=== PATIENT | male | born 1970 | race Caucasian/White ===

== ENCOUNTER → 2017-09-29 16:07 | Outpatient (CLI) | payer BC, SELFPAY | PROVIDERS: PCP Internal Medicine; Visit Provider Internal Medicine | DX: G47.33 Obstructive sleep apnea (adult) (pediatric) (principal); I10 Essential (primary) hypertension; E11.9 Type 2 diabetes mellitus without complications | CPT/HCPCS: G0399 ==

== ENCOUNTER → 2018-09-18 17:06 | Outpatient (CLI) | payer OTHER, SELFPAY ==
[2018-09-18 17:26] LABS: Basophils % 0.5 % (0.1-2.0); Eosinophils # 0.2 K/mm3 (0.0-0.4); Hematocrit 46.5 % (42.0-52.0); Hemoglobin 15.7 g/dL (14.1-18.0); Lymphocytes # 2.4 K/mm3 (0.7-4.5); Lymphocytes % 31.5 % (10-50); Mean Corpuscular HGB Conc 33.7 g/dL (31.8-35.4); Mean Corpuscular Hemoglobin 29.2 pg (27.0-31.2); Mean Corpuscular Volume 86.6 fl (80-94); Mean Platelet Volume 6.8 fl (7.4-10.4); Monocytes # 0.4 K/mm3 (0.1-1.0); Monocytes % 4.7 % (1.7-9.3); Neutrophils # 4.7 K/mm3 (1.8-7.8); Neutrophils % 61.3 % (37.0-80.0); Platelet Count 195 K/mm3 (142-424); Red Blood Count 5.37 M/mm3 (4.60-6.20); Red Cell Distribution Width 13.8 % (11.5-17.5); White Blood Count 7.6 K/mm3 (4.8-10.8)
[2018-09-18 18:59] LABS: Blood Urea Nitrogen 16 mg/dL (7-18); Creatinine,Serum 0.99 mg/dL (0.70-1.30); Estimated Glomerular Filt Rate 81 ml/min (>60); GFR (African American) 98 ML/MIN (>60)
--- NOTE | 2018-09-18 19:17 | CT_ITS ---
CT abdomen pelvis wo/w con CLINICAL INDICATION: Right lower quadrant pain, right flank pain ITS.REASON: RLQ PAIN ORDERING PHYSICIAN: Domnigo Cardenas PATIENT AGE: 47 years COMPARISON: None TECHNIQUE: Axial images obtained without and with contrast with sagittal and coronal reformats. All CT scans at the facility use one or more dose reduction, viz: automated exposure control, ma/kV adjustment per patient size (including targeted exams where dose is matched to indication, i.e. head), or iterative reconstruction technique. PROCEDURE: Oral Contrast: Gastroview IV Contrast: 75 mL's of Isovue 370. FINDINGS: There are mild atelectatic changes in the right lung base. The liver, spleen, adrenal glands, pancreas, and kidneys have an unremarkable appearance. No renal or ureteral calculi. No hydronephrosis. No evidence of appendicitis, intestinal obstruction, or free air. There is mild amount of retained colonic feces. There is thickening of the distal aspect of the sigmoid colon at the rectosigmoid region measuring approximately 9 cm in length. There is mild stranding of the pericolic fat at this region. There are a few diverticula noted within the sigmoid colon. No abscess. No free air. The prostate gland is enlarged with some dystrophic calcification. No acute bony anomalies. IMPRESSION: Acute sigmoid colitis which may be diverticular in origin. Follow-up is recommended to confirm resolution. Neoplasm is not excluded. No evidence of abscess or perforation. No evidence of appendicitis or obstructing ureteral calculus
== END ==
PROVIDERS: PCP Internal Medicine; Visit Provider Internal Medicine
DX: R10.11 Right upper quadrant pain (principal)
CPT/HCPCS: 36415; 74178; 82565; 84520; 85025; Q9967

== ENCOUNTER → 2019-01-17 13:14 | Outpatient (CLI) | payer OTHER, SELFPAY | PROVIDERS: PCP Internal Medicine; Visit Provider Internal Medicine | DX: G47.33 Obstructive sleep apnea (adult) (pediatric) (principal) | CPT/HCPCS: 95806 ==

== ENCOUNTER → 2019-07-11 16:53 | Outpatient (CLI) | payer OTHER, SELFPAY ==
[2019-07-11 17:43] LABS: Alanine Aminotransferase 37 U/L (12-78); Albumin/Globulin Ratio 0.9 (1.1-1.8); Alkaline Phosphatase 49 U/L (46-116); Anion Gap 11.9 mEq/L (5-15); Aspartate Amino Transferase 20 U/L (15-37); Bilirubin,Total 0.5 mg/dL (0.2-1.0); Blood Urea Nitrogen 12 mg/dL (7-18); Carbon Dioxide 24 mmol/L (21.0-32.0); Chloride 99 mmol/L (98-107); Creatinine,Serum 0.75 mg/dL (0.70-1.30); Estimated Glomerular Filt Rate 111 ml/min (>60); GFR (African American) 134 ML/MIN (>60); Globulin 3.5 gm/dl (1.3-3.2); Glucose 133 mg/dL (74-106); Magnesium 2.1 mg/dL (1.4-2.2); Phosphorous 2.9 mg/dL (2.4-4.9); Potassium 3.9 mmoL/L (3.5-5.1); Sodium 131 mmol/L (136-145); Total Protein,Serum 6.5 gm/dL (6.4-8.2); Triglycerides 120 mg/dL (30-200)
[2019-07-11 18:48] LABS: Basophils % 0.1 % (0.1-2.0); Eosinophils % 0.3 % (0.1-12.0); Hematocrit 35.6 % (42.0-52.0); Hemoglobin 11.8 g/dL (14.1-18.0); Lymphocytes # 1.1 K/mm3 (0.7-4.5); Lymphocytes % 13.5 % (10-50); Mean Corpuscular HGB Conc 33.1 g/dL (31.8-35.4); Mean Corpuscular Hemoglobin 31.1 pg (27.0-31.2); Mean Corpuscular Volume 94.1 fl (80-94); Mean Platelet Volume 9.1 fl (7.4-10.4); Monocytes # 0.5 K/mm3 (0.1-1.0); Monocytes % 5.6 % (1.7-9.3); Neutrophils # 6.4 K/mm3 (1.8-7.8); Neutrophils % 80.5 % (37.0-80.0); Platelet Count 133 K/mm3 (142-424); Red Blood Count 3.78 M/mm3 (4.60-6.20); Red Cell Distribution Width 14.5 % (11.5-17.5)
[2019-07-13 05:15] LABS: Prealbumin 18 mg/dL (12-34)
== END ==
PROVIDERS: Visit Provider Nurse Practitioner Acute Care
DX: D64.9 Anemia, unspecified (principal)
CPT/HCPCS: 80053; 83735; 84100; 84134; 84478; 85025

== ENCOUNTER → 2020-05-27 13:46 | Outpatient (POV) | payer OTHER, SELFPAY | DX: Z00.00 Encounter for general adult medical examination without abnormal findings (principal) ==

== ENCOUNTER 2020-07-30 08:00 | Outpatient (RCR) | payer OTHER, SELFPAY | END 2020-07-30 08:05 | disposition home or self-care (01) | LOC: PT 08:00 | PROVIDERS: PCP Internal Medicine; Visit Provider Physician Assistant Medical | DX: T81.30XA Disruption of wound, unspecified, initial encounter (principal) | CPT/HCPCS: 97110; 97163; 97164 ==

== ENCOUNTER 2020-09-08 14:48 | Emergency (ER) | payer OTHER, SELFPAY ==
[2020-09-08 14:49] VITALS: BP 146/86; PULSE 106; RESP 16; TEMP 39.4; O2SAT 96; BMI 30.4
--- NOTE | 2020-09-08 15:10 | HMH.EDUTC ---
[facility] [place] Clinical Impression: Viral syndrome, Exposure to COVID-19 virus Disposition: Home, Self-Care Condition on Discharge: Good Instructions: DI for COVID-19 (Suspected or Confirmed ), Preventing the Spread of Coronavirus Discharge Instructions Additional Instructions: Drink plenty of fluids. Take tylenol for pain or fever. Return if you begin to have difficulty breathing. Follow up with your regular doctor. GO TO THE ER FOR ANY WORSENING SYMPTOMS Take the zofran for nausea. Go to the er for worsening GI symptoms or difficulty breathing. Prescriptions: Ondansetron [Zofran 4mg ODT] 4 mg PO Q8HP PRN #20 tab.rapdis PRN Reason: Nausea Transmission Status: Received by conXt #[id number] Referrals: Domingo Cardenas [Primary Care Provider] - Time of Disposition: 15:42 Medical Decision Making - Medical Records Medical records reviewed: No: I reviewed the patient's medical records. - See Inquiry Pt receiving controlled substance: No Vital Signs: 09/08/20 14:49 09/08/20 15:52 Temperature 102.9 F H 101.0 F H Temperature Source Oral Oral Pulse Rate 106 H Pulse Rate [Right] 106 H Respiratory Rate 16 15 Blood Pressure 146/86 H Blood Pressure [Right Arm] 146/86 H Blood Pressure Mean [Right Arm] 106 02 Sat by Pulse Oximetry 96 Orders (Tests/Meds): ED MEDICATIONS Discontinued Medications Generic Name Dose Route Start Last Admin Trade Name Freq PRN Reason Stop Dose Admin Acetaminophen 650 mg 09/08/20 15:20 09/08/20 15:22 Acetaminophen 325mg Tab PO 09/08/20 15:21 650 mg ONCE ONE Administration Ibuprofen 800 mg 09/08/20 15:20 09/08/20 15:23 Ibuprofen 400 Mg Tablet PO 09/08/20 15:21 800 mg ONCE ONE Administration [facility] [place] - General Stated complaint: cough scratchy throat fever Time Seen by Provider: 09/08/20 15:10 - History of Present Illness Provider Complaint: He states that since very early this morning, he has had chilling, fever, body aches and nausea. - Related Data Previous Rx's Medication Instructions Recorded Ondansetron [Zofran 4mg ODT] 4 mg PO Q8HP PRN #20 tab.rapdis 01/12/21 Allergies Allergy/AdvReac Type Severity Reaction Status Date / Time No Known Allergies Allergy Verified 09/08/20 15:20 [facility] History - Hepatitis A Screen Attestation statement:: This patient has been screened for Hepatitis A risk factors. I have reviewed the patient's past medical history: Yes Medical History: Reports:: Cancer (colorectal), Diabetes Mellitus Type 2 Denies:: Diabetes Mellitus Type 1, MRSA - Social History Alcohol Intake: never Occupational Status: unemployed ROS Obtained: Yes All systems reviewed & no additional complaints - Constitutional Constitutional: Reports system reviewed and no additional complaints, except as docu - Eyes Eyes: Reports system reviewed and no additional complaints, except as docu - ENT Ears, Nose, Mouth, and Throat: Reports system reviewed and no additional complaints, except as docu - Cardiovascular Cardiovascular: Reports system reviewed and no additional complaints, except as docu - Respiratory Respiratory: Reports system reviewed and no additional complaints, except as docu - Gastrointestinal Gastrointestingal: Reports: system reviewed and no additional complaints, except as docu Physical Exam - General General appearance: alert, in no apparent distress - Head Head exam: atraumatic, normocephalic, normal inspection - Eye Eye exam: Present: normal appearance, PERRL, EOMI - ENT ENT exam: Present: normal exam, normal oropharynx, mucous membranes moist, TM's normal bilaterally, normal external ear exam - Neck Neck exam: Present: normal inspection, full ROM, trachea midline. Absent: meningismus, lymphadenopathy - Chest Chest inspection: Present: normal inspection, symmetric chest wall rise. Absent: tenderness - Respiratory Respiratory
[2020-09-08 15:52] VITALS: BP 146/86; PULSE 106; RESP 15; TEMP 38.3
[2020-09-08 21:17] LABS: UTC Influenza A Antigen Negative (Negative)
[2020-09-08 21:18] LABS: UTC Influenza B Antigen Negative (Negative)
[2020-09-10 10:50] LABS: Covid-19 Nasal PCR Sendout P&C POSITIVE
--- NOTE | 2020-09-10 13:36 | PC.NURSE ---
PATIENT NOTIFIED OF POSITIVE COVID TEST AT THIS TIME
== END 2020-09-08 15:58 | disposition home or self-care (01) ==
PROVIDERS: Emergency Provider Nurse Practitioner Family; PCP Internal Medicine
DX: U07.1 COVID-19 (principal); B34.9 Viral infection, unspecified; E11.9 Type 2 diabetes mellitus without complications; Z85.038 Personal history of other malignant neoplasm of large intestine
CPT/HCPCS: 87804; 99202; G0463; U0004

== ENCOUNTER 2020-10-08 12:42 | Emergency (ER) | payer OTHER, SELFPAY ==
[2020-10-08 12:53] VITALS: BP 148/86; PULSE 75; RESP 17; TEMP 36.8; O2SAT 99; BMI 30.4
--- NOTE | 2020-10-08 12:56 | HMH.EDUTC ---
[facility] [place] Disposition Clinical Impression: Encounter for laboratory testing for COVID-19 virus Disposition: Home, Self-Care Condition on Discharge: Good Instructions: DI for COVID-19 (Suspected or Confirmed ), Coronavirus Disease 2019, Preventing the Spread of Coronavirus Discharge Instructions Additional Instructions: *Monitor Temp, Over the counter Motrin or Tylenol as directed/as needed Tylenol every 4 hours and Motrin every 6 hours (as long as your family doctor has told you that you can take it) for fever or pain. and straight to ER if unable to lower temp less than 101.0 after medication given Follow up IMMEDIATELY for new or worsening symptoms or no Noticeable improvement over the next 48-72 hours. 911 for difficulty breathing or swallowing You were tested for today for COVID19 your test result should be back in the next 24-48 hours, you may call to the [facility] to see if your test results are back in the next 48 hours [phone] [facility] hours are 9am-9pm You was given a handout with instructions for Self Quarantine and Self isolation for while you wait on test results and what to do if they are positive If you are positive the Health Dept will be contacting you also Referrals: Domingo Cardenas [Primary Care Provider] - As needed Forms: Work/School Release Time of Disposition: 13:00 Medical Decision Making - See Inquiry Pt receiving controlled substance: No See was queried for this patient: No Vital Signs: 10/08/20 12:53 10/08/20 12:59 Temperature 98.2 F 98.1 F Temperature Source Oral Oral Pulse Rate 78 Pulse Rate [Right] 75 Respiratory Rate 17 16 Blood Pressure 142/80 H Blood Pressure [Right Arm] 148/86 H Blood Pressure Mean [Right Arm] 106 Blood Pressure Source [Right Arm] Automatic Cuff Blood Pressure Position Sitting Blood Pressure Position [Right Arm] Sitting 02 Sat by Pulse Oximetry 99 Oxygen Delivery Method Room Air Orders (Tests/Meds): ORDERS Category Date Time Status Covid-19 Nasal PCR ([facility]) Routine Lab 10/08/20 12:46 Ordered [facility] [place] HPI - General Stated complaint: covid test Time Seen by Provider: 10/08/20 12:57 Mode of Arrival: Ambulatory Source of Information: Patient Limitations: No Limitations Description of Symptoms (Recalled from Triage Doc. by RN): follow up covid test after positive test on Sep 08. HEENT Symptoms (Recalled from RN notes): No Resp Symptoms (Recalled from RN notes): No Skin Symptoms (Recalled from RN notes): No MS Symptoms (Recalled from RN notes): No Functional Status (Recalled from RN notes): na - History of Present Illness Provider Complaint: Patient states that he was positive for COVID on Sep 08 States that he wants to get tested again to see if he is negative so he can return to work Denies any symptoms - Related Data Previous Rx's Medication Instructions Recorded Ondansetron [Zofran 4mg ODT] 4 mg PO Q8HP PRN #20 tab.rapdis 09/08/20 Allergies Allergy/AdvReac Type Severity Reaction Status Date / Time atropine [From Lomotil] Allergy Verified 10/08/20 12:50 diphenoxylate [From Lomotil] Allergy Verified 10/08/20 12:50 - Worker's Comp Is this a Worker's Comp case?: No [facility] History - Hepatitis A Screen Drug use history?: No High risk sexual behaviors?: No History of sexually transmitted infection?: No Currently employed?: No Childcare worker?: No Do you have indoor plumbing?: Yes Do you have electricity?: Yes Attestation statement:: This patient has been screened for Hepatitis A risk factors. I have reviewed the patient's past medical history: Yes Medical History: Reports:: Cancer (colorectal), Diabetes Mellitus Type 2 Denies:: Diabetes Mellitus Type 1, MRSA - Social History Smoking Status: Unknown if ever smoked Alcohol Intake: never Occupational Status: employed ROS Obtained: Yes All systems reviewed & no additional complaints, Yes Systems reviewed as appropriate & no additional complaints - Constitut
[2020-10-08 12:59] VITALS: BP 142/80; PULSE 78; RESP 16; TEMP 36.7
--- NOTE | 2020-10-08 15:27 | PC.NURSE ---
Pt notified positive covid test
== END 2020-10-08 13:05 | disposition home or self-care (01) ==
PROVIDERS: Emergency Provider Nurse Practitioner; PCP Internal Medicine
DX: U07.1 COVID-19 (principal); E11.9 Type 2 diabetes mellitus without complications
CPT/HCPCS: 99202; G0463; U0003

== ENCOUNTER → 2021-01-22 15:56 | Outpatient (CLI) | payer OTHER, SELFPAY ==
--- NOTE | 2021-01-22 16:02 | CT_ITS ---
PROCEDURE INFORMATION: Exam: CT Head Without Contrast Exam date and time: 01/22/2021 4:02 PM Age: 50 years old Clinical indication: Pain; Patient HX: Headache, neck ache TECHNIQUE: Imaging protocol: Computed tomography of the head without contrast. Radiation optimization: All CT scans at this facility use at least one of these dose optimization techniques: automated exposure control; mA and/or kV adjustment per patient size (includes targeted exams where dose is matched to clinical indication); or iterative reconstruction. COMPARISON: No relevant prior studies available. FINDINGS: Brain: Normal. No hemorrhage. Unremarkable white matter. No mass effect. Cerebral ventricles: No ventriculomegaly. Paranasal sinuses: Visualized sinuses are unremarkable. No fluid levels. Mastoid air cells: Visualized mastoid air cells are well aerated. Bones/joints: No acute fracture. Soft tissues: No acute changes IMPRESSION: No acute intracranial abnormality.
== END ==
PROVIDERS: PCP Internal Medicine; Visit Provider Internal Medicine
DX: R51.9 Headache, unspecified (principal)
CPT/HCPCS: 70450

== ENCOUNTER → 2021-06-21 18:26 | Outpatient (CLI) | payer OTHER, SELFPAY ==
[2021-06-21 18:57] LABS: Basophils % 0.2 % (0.1-2.0); Eosinophils # 0.1 K/mm3 (0.0-0.4); Eosinophils % 2.4 % (0.1-12.0); Hematocrit 39.2 % (42.0-52.0); Hemoglobin 12.9 g/dL (14.1-18.0); Lymphocytes # 1.2 K/mm3 (0.7-4.5); Lymphocytes % 20.7 % (10-50); Mean Corpuscular HGB Conc 32.9 g/dL (31.8-35.4); Mean Corpuscular Hemoglobin 30.1 pg (27.0-31.2); Mean Corpuscular Volume 91.6 fl (80-94); Mean Platelet Volume 9.2 fl (7.4-10.4); Monocytes # 0.3 K/mm3 (0.1-1.0); Monocytes % 5.3 % (1.7-9.3); Neutrophils % 71.4 % (37.0-80.0); Platelet Count 152 K/mm3 (142-424); Red Blood Count 4.28 M/mm3 (4.60-6.20); Red Cell Distribution Width 14.6 % (11.5-17.5); White Blood Count 5.7 K/mm3 (4.8-10.8)
[2021-06-21 19:55] LABS: Alanine Aminotransferase 13 U/L (12-78); Albumin Level 4.2 g/dl (3.5-5.0); Albumin/Globulin Ratio 1.6 (1.1-1.8); Alkaline Phosphatase 60 U/L (38-126); Anion Gap 12.1 mEq/L (5-15); Aspartate Amino Transferase 21 U/L (17-59); Bilirubin,Total 0.5 mg/dl (0.2-1.3); Blood Urea Nitrogen 14 mg/dl (9-20); Carbon Dioxide 27 mmol/L (22.0-30.0); Chloride 104 mmol/L (98-107); Chol/HDL Ratio 5.3 (1-3.5); Cholesterol 142 mg/dl (140-200); Estimated Glomerular Filt Rate 71 ml/min (>60); GFR (African American) 86 ML/MIN (>60); Globulin 2.6 g/dL (1.3-3.2); Glucose 73 mg/dl (74-100); HDL Cholesterol 27 mg/dl (40-60); Potassium 4.1 mmoL/L (3.5-5.1); Sodium 139 mmol/L (136-145); Total Protein,Serum 6.8 g/dl (6.3-8.2); Triglycerides 146 mg/dl (30-150); VLDL Cholesterol 29 mg/dL (0-40)
[2021-06-21 20:06] LABS: Direct LDL Cholesterol 85.73 mg/dL (100-129)
[2021-06-21 20:25] LABS: Prostate Specific Ag Screen 1.3 ng/ml (0.0-4.0)
[2021-06-21 20:28] LABS: Hemoglobin A1C 7.3 % (4.0-6.0)
== END ==
PROVIDERS: Visit Provider Internal Medicine
DX: I10 Essential (primary) hypertension (principal); E11.9 Type 2 diabetes mellitus without complications; E78.5 Hyperlipidemia, unspecified; K76.0 Fatty (change of) liver, not elsewhere classified; C18.9 Malignant neoplasm of colon, unspecified; N40.1 Benign prostatic hyperplasia with lower urinary tract symptoms; Z12.5 Encounter for screening for malignant neoplasm of prostate; Z98.890 Other specified postprocedural states
CPT/HCPCS: 80053; 80061; 83036; 85025; G0103

== ENCOUNTER 2021-07-13 09:00 | Outpatient (RCR) | payer OTHER, SELFPAY | END 2021-07-13 09:05 | disposition home or self-care (01) | LOC: PT 09:00 | PROVIDERS: PCP Internal Medicine; Visit Provider Neurological Surgery | DX: M79.18 Myalgia, other site (principal) | CPT/HCPCS: 20561; 97010; 97014; 97110; 97140; 97163; G0283 ==

== ENCOUNTER 2021-08-31 11:02 | Outpatient (CLI) | payer OTHER, SELFPAY ==
[2021-08-31 11:08] VITALS: BMI 26.2
[2021-08-31 11:36] LABS: Basophils % 0.6 % (0.1-2.0); Eosinophils # 0.1 K/mm3 (0.0-0.4); Eosinophils % 1.1 % (0.1-12.0); Hematocrit 27.7 % (42.0-52.0); Hemoglobin 9.3 g/dL (14.1-18.0); Lymphocytes # 0.9 K/mm3 (0.7-4.5); Lymphocytes % 17.2 % (10-50); Mean Corpuscular HGB Conc 33.5 g/dL (31.8-35.4); Mean Corpuscular Hemoglobin 29.7 pg (27.0-31.2); Mean Corpuscular Volume 88.7 fl (80-94); Mean Platelet Volume 7.6 fl (7.4-10.4); Monocytes # 0.4 K/mm3 (0.1-1.0); Neutrophils % 74.2 % (37.0-80.0); Platelet Count 250 K/mm3 (142-424); Red Blood Count 3.12 M/mm3 (4.60-6.20); Red Cell Distribution Width 14.3 % (11.5-17.5); White Blood Count 5.5 K/mm3 (4.8-10.8)
[2021-08-31 11:37] LABS: Chloride 104 mmol/L (98-107)
[2021-08-31 11:38] LABS: Potassium 4.7 mmoL/L (3.5-5.1); Sodium 136 mmol/L (136-145)
[2021-08-31 11:40] LABS: Alanine Aminotransferase 23 U/L (12-78); Aspartate Amino Transferase 22 U/L (17-59); Blood Urea Nitrogen 46 mg/dl (9-20); Creatinine Clearance Estimated 20 mL/min (50-200); Estimated Glomerular Filt Rate 12 ml/min (>60); GFR (African American) 14 ML/MIN (>60)
[2021-08-31 11:41] LABS: Albumin Level 3.8 g/dl (3.5-5.0); Albumin/Globulin Ratio 1.2 (1.1-1.8); Alkaline Phosphatase 161 U/L (38-126); Anion Gap 15.7 mEq/L (5-15); Bilirubin,Total 0.3 mg/dl (0.2-1.3); Calcium 8.7 mg/dl (8.4-10.2); Carbon Dioxide 21 mmol/L (22.0-30.0); Globulin 3.2 g/dL (1.3-3.2); Glucose 120 mg/dl (74-100)
--- NOTE | 2021-08-31 11:41 | PC.NURSE ---
1143-pinky richardson mlt called rn at 1141 to report creatinine level 5.3. rn repeated and verified pt name, , and lab value.result called to and left message with sissy. no new orders at this time.
== END 2021-08-31 11:20 | disposition home or self-care (01) ==
LOC: INF 11:03
PROVIDERS: PCP Internal Medicine; Visit Provider Surgery
DX: Z45.2 Encounter for adjustment and management of vascular access device (principal); C18.9 Malignant neoplasm of colon, unspecified; N19 Unspecified kidney failure; D64.9 Anemia, unspecified
CPT/HCPCS: 80053; 85025; J1642

== ENCOUNTER → 2021-09-07 11:01 | Outpatient (CLI) | payer OTHER, SELFPAY | PROVIDERS: PCP Internal Medicine; Visit Provider Surgery | DX: Z45.2 Encounter for adjustment and management of vascular access device (principal); N13.5 Crossing vessel and stricture of ureter without hydronephrosis; C20 Malignant neoplasm of rectum | CPT/HCPCS: 96523; J1642 ==

== ENCOUNTER 2021-10-05 11:15 | Outpatient (CLI) | payer OTHER, SELFPAY ==
[2021-10-05 11:15] VITALS: BMI 26.2
[2021-10-05 11:30] VITALS: BP 122/74; PULSE 68; RESP 20; TEMP 36.9; O2SAT 95
[2021-10-05 11:57] LABS: Basophils # 0.1 K/mm3 (0-0.2); Basophils % 0.8 % (0.1-2.0); Eosinophils # 0.1 K/mm3 (0.0-0.4); Eosinophils % 1.6 % (0.1-12.0); Hematocrit 34.7 % (42.0-52.0); Hemoglobin 11.3 g/dL (14.1-18.0); Lymphocytes # 1.8 K/mm3 (0.7-4.5); Lymphocytes % 22.1 % (10-50); Mean Corpuscular HGB Conc 32.6 g/dL (31.8-35.4); Mean Corpuscular Hemoglobin 28.9 pg (27.0-31.2); Mean Corpuscular Volume 88.6 fl (80-94); Mean Platelet Volume 8.6 fl (7.4-10.4); Monocytes # 0.4 K/mm3 (0.1-1.0); Monocytes % 4.7 % (1.7-9.3); Neutrophils # 5.6 K/mm3 (1.8-7.8); Neutrophils % 70.8 % (37.0-80.0); Platelet Count 186 K/mm3 (142-424); Red Blood Count 3.91 M/mm3 (4.60-6.20); Red Cell Distribution Width 15.9 % (11.5-17.5); White Blood Count 7.9 K/mm3 (4.8-10.8)
[2021-10-05 12:04] LABS: Chloride 96 mmol/L (98-107); Potassium 5.2 mmoL/L (3.5-5.1); Sodium 134 mmol/L (136-145)
[2021-10-05 13:10] LABS: Alanine Aminotransferase 30 U/L (12-78); Albumin Level 4.4 g/dl (3.5-5.0); Albumin/Globulin Ratio 1.2 (1.1-1.8); Alkaline Phosphatase 102 U/L (38-126); Anion Gap 14.2 mEq/L (5-15); Aspartate Amino Transferase 32 U/L (17-59); Bilirubin,Total 0.5 mg/dl (0.2-1.3); Blood Urea Nitrogen 38 mg/dl (9-20); Calcium 9.8 mg/dl (8.4-10.2); Carbon Dioxide 29 mmol/L (22.0-30.0); Creatinine Clearance Estimated 65 mL/min (50-200); Estimated Glomerular Filt Rate 46 ml/min (>60); GFR (African American) 56 ML/MIN (>60); Globulin 3.6 g/dL (1.3-3.2); Glucose 125 mg/dl (74-100)
== END 2021-10-05 11:45 | disposition home or self-care (01) ==
LOC: INF 11:16
PROVIDERS: PCP Internal Medicine; Visit Provider Internal Medicine
DX: C20 Malignant neoplasm of rectum (principal); C77.2 Secondary and unspecified malignant neoplasm of intra-abdominal lymph nodes; N13.6 Pyonephrosis; I10 Essential (primary) hypertension; E11.59 Type 2 diabetes mellitus with other circulatory complications; Z45.2 Encounter for adjustment and management of vascular access device
CPT/HCPCS: 80053; 85025; J1642

== ENCOUNTER 2021-10-06 13:47 | Outpatient (CLI) | payer OTHER, SELFPAY | END 2021-10-06 14:25 | disposition home or self-care (01) | LOC: INF 13:48 | PROVIDERS: PCP Internal Medicine; Visit Provider Surgery | DX: C20 Malignant neoplasm of rectum (principal); N13.6 Pyonephrosis; Z45.2 Encounter for adjustment and management of vascular access device | CPT/HCPCS: 96523; J1642 ==

== ENCOUNTER 2022-01-03 10:38 | Outpatient (CLI) | payer OTHER, SELFPAY ==
[2022-01-03 10:54] VITALS: BMI 22.9
[2022-01-03 11:03] LABS: Basophils # 0.1 K/mm3 (0-0.2); Eosinophils # 0.1 K/mm3 (0.0-0.4); Eosinophils % 0.6 % (0.1-12.0); Hematocrit 27.4 % (42.0-52.0); Hemoglobin 9.6 g/dL (14.1-18.0); Lymphocytes # 0.7 K/mm3 (0.7-4.5); Lymphocytes % 7.7 % (10-50); Mean Corpuscular Hemoglobin 30.7 pg (27.0-31.2); Mean Corpuscular Volume 87.7 fl (80-94); Mean Platelet Volume 8.6 fl (7.4-10.4); Monocytes # 0.4 K/mm3 (0.1-1.0); Monocytes % 4.7 % (1.7-9.3); Neutrophils # 7.9 K/mm3 (1.8-7.8); Red Blood Count 3.12 M/mm3 (4.60-6.20); Red Cell Distribution Width 16.9 % (11.5-17.5); White Blood Count 9.1 K/mm3 (4.8-10.8)
[2022-01-03 11:12] LABS: Platelet Count 16 K/mm3 (142-424)
[2022-01-03 11:13] LABS: MANUAL DIFFERENTIAL MANUAL DIFFERENTIAL (MANUAL DIFF)
--- NOTE | 2022-01-03 11:20 | PC.NURSE ---
01/03/22 1111 Renetta Dawson called RN at 1111 to report plt level-16. RN repeated and verified pt name, , and lab value. Result called and lab results faxed to Dr. Rueda in [place]. No new orders noted, pt/ state that md will contact them regarding results and next step for poc.
[2022-01-03 12:19] LABS: Lymphocytes % 17 % (10-50); Monocytes % 3 % (2-9); Neutrophils % 75 % (42-76); Platelet Estimate Normal; RBC Morphology Normal; Total Cells Counted 100
== END 2022-01-03 11:01 | disposition home or self-care (01) ==
LOC: INF 10:39
PROVIDERS: PCP Internal Medicine; Visit Provider Internal Medicine Hematology & Oncology
DX: D69.6 Thrombocytopenia, unspecified (principal)
CPT/HCPCS: 36591; 85007; 85025

== ENCOUNTER 2022-01-09 23:01 | Inpatient (IN) | payer OTHER, SELFPAY ==
[2022-01-09 23:02] VITALS: BP 113/66; PULSE 119; RESP 22; TEMP 36.9; O2SAT 99; BMI 22.8
[2022-01-09 23:12] VITALS: BMI 22.8
--- NOTE | 2022-01-09 23:12 | ECG_ITS ---
APPROVED REPORT Exam: Resting ECG HR:112 bpm ECG Measurements Heart Rate 112 AXES UT 143 P 79 QRSd 90 QRS 69 QT 245 T 87 QTc 311 Conclusion SINUS TACHYCARDIA NONSPECIFIC T-WAVE ABNORMALITY ABNORMAL RHYTHM ECG UNCONFIRMED REPORT Electronically signed by : Hossein Acevedo MD 01/10/2022 15:49:01
--- NOTE | 2022-01-09 23:12 | XR_ITS ---
PROCEDURE INFORMATION: Exam: XR Chest Exam date and time: 01/09/22 11:17 PM Age: 51 years old Clinical indication: Dyspnea and other: Weakness; Patient HX: PT has cancer TECHNIQUE: Imaging protocol: XR of the chest. Views: 1 view. COMPARISON: CR XR CHEST 2V 08/04/19 09:30 AM FINDINGS: Tubes, catheters and devices: Right IJ MediPort overlies the SVC. Lungs: Unremarkable. No consolidation. Pleural spaces: Unremarkable. No pleural effusion. No pneumothorax. Heart/Mediastinum: Unremarkable. No cardiomegaly. Bones/joints: Unremarkable. IMPRESSION: No acute cardiopulmonary findings. No significant interval change since comparison.
[2022-01-09 23:29] LABS: Microscopic, Urine URINE MICROSCOPIC (MICROSCOPIC)
[2022-01-09 23:35] LABS: Basophils # 0.1 K/mm3 (0-0.2); Basophils % 0.9 % (0.1-2.0); Eosinophils % 0.2 % (0.1-12.0); Lymphocytes # 0.7 K/mm3 (0.7-4.5); Lymphocytes % 7.4 % (10-50); Mean Corpuscular Hemoglobin 29.2 pg (27.0-31.2); Mean Corpuscular Volume 81.2 fl (80-94); Monocytes # 0.3 K/mm3 (0.1-1.0); Monocytes % 3.3 % (1.7-9.3); Neutrophils # 8.5 K/mm3 (1.8-7.8); Neutrophils % 88.2 % (37.0-80.0); Red Blood Count 1.99 M/mm3 (4.60-6.20); White Blood Count 9.6 K/mm3 (4.8-10.8)
[2022-01-09 23:35] LABS: Appearance,Urine TURBID (Clear); Blood, Urine 3+ (Negative); Color,Urine RED (Yellow); Glucose,Urine (UA) Negative (Negative); Ketones,Urine TRACE (Negative); Leukocyte Esterase,Urine 3+ (Negative); Nitrate,Urine POSITIVE (Negative); Protein,Urine 3+ (Negative); Specific Gravity, Urine 1.015 (1.005-1.030)
[2022-01-09 23:37] LABS: Influenza A, PCR Not Detected (NotDetected); Influenza B, PCR Not Detected (NotDetected)
[2022-01-09 23:39] LABS: Alanine Aminotransferase 51 U/L (12-78); Albumin/Globulin Ratio 1.2 (1.1-1.8); Alkaline Phosphatase 110 U/L (38-126); Anion Gap 16.9 mEq/L (5-15); Aspartate Amino Transferase 56 U/L (17-59); Bilirubin,Total 0.8 mg/dl (0.2-1.3); Blood Urea Nitrogen 64 mg/dl (9-20); Carbon Dioxide 21 mmol/L (22.0-30.0); Chloride 93 mmol/L (98-107); Creatinine Clearance Estimated 46 mL/min (50-200); Estimated Glomerular Filt Rate 38 ml/min (>60); GFR (African American) 45 ML/MIN (>60); Globulin 2.6 g/dL (1.3-3.2); Glucose 181 mg/dl (74-100); Potassium 3.9 mmoL/L (3.5-5.1); Sodium 127 mmol/L (136-145); Total Protein,Serum 5.6 g/dl (6.3-8.2)
[2022-01-09 23:41] LABS: MANUAL DIFFERENTIAL MANUAL DIFFERENTIAL (MANUAL DIFF)
[2022-01-09 23:44] LABS: Hematocrit 16.2 % (42.0-52.0); Hemoglobin 5.8 g/dL (14.1-18.0); Platelet Count 8 K/mm3 (142-424)
[2022-01-09 23:46] LABS: Bilirubin,Urine Negative (Negative)
[2022-01-09 23:47] LABS: RBC,Urine TNTC #/hpf (0-3); WBC,Urine TNTC #/hpf (0-3)
[2022-01-09 23:48] LABS: Lactic Acid 2.7 mmol/L (0.7-2.1)
[2022-01-09 23:49] LABS: Calcium 12.6 mg/dl (8.4-10.2)
[2022-01-09 23:53] LABS: Troponin I 0.06 ng/ml (0.00-0.034)
[2022-01-09 23:58] LABS: Anisocytosis 2+; Lymphocytes % 7 % (10-50); Monocytes % 2 % (2-9); Neutrophils % 78 % (42-76); Platelet Estimate Marked Decrease; Total Cells Counted 100
[2022-01-09 23:59] LABS: Rouleaux 1+
[2022-01-10] VITALS (77 sets, daily range): BP systolic 105–165; BP diastolic 61–79; PULSE 85–111; RESP 15–18; TEMP 36.3–37.5; O2SAT 95–100; BMI 21.7
[2022-01-10 00:16] LABS: Coronavirus 19, PCR Detected (NotDetected)
[2022-01-10 00:17] LABS: Erythrocyte Sedimentation Rate 90 mm/hr (0-20)
--- NOTE | 2022-01-10 00:35 | PC.NURSE ---
pt refused CTA Chest due to not wanting IV contrast
--- NOTE | 2022-01-10 01:27 | HMH.EDSOB ---
ED Disposition Clinical Impression: Severe sepsis with acute organ dysfunction, Colon carcinoma metastatic to multiple sites, COVID-19, Thrombocytopenia, LILI (acute kidney injury), Hypercalcemia UTI (urinary tract infection) Qualifiers: Urinary tract infection type: catheter-associated UTI Indwelling urinary catheter type: nephrostomy catheter Encounter type: initial encounter Qualified Code(s): T83.512A - Infection and inflammatory reaction due to nephrostomy catheter, initial encounter; N39.0 - Urinary tract infection, site not specified Anemia Qualifiers: Anemia type: unspecified type Qualified Code(s): D64.9 - Anemia, unspecified Disposition: Admitted As Inpatient Condition on Discharge: Serious - Critical Care Critical Care Time: No Attestation: On 01/09/22, the high probability of a clinically significant, sudden or life threatening deterioration of the following system(s) required my full and direct attention, intervention and personal management. The time I documented below is in addition to time spent performing reported procedures but includes the following listed in this critical care notation. Medical Decision Making - Medical Records Medical records reviewed: Yes: I reviewed the patient's medical records. - See Inquiry Pt receiving controlled substance: No Vital Signs: 01/09/22 23:02 01/10/22 00:00 01/10/22 00:30 Temperature 98.5 F Temperature Source Oral Pulse Rate 111 H 107 H Pulse Rate [Right] 119 H Respiratory Rate 22 18 16 TAR Vitals Timing Blood Pressure 108/61 L 111/63 Blood Pressure [Right Arm] 113/66 Blood Pressure Mean 70 75 Blood Pressure Mean [Right Arm] 81 Blood Pressure Source Blood Pressure Position 02 Sat by Pulse Oximetry 99 97 98 01/10/22 01:00 01/10/22 01:30 01/10/22 02:30 Temperature Temperature Source Pulse Rate 108 H 100 H 97 H Pulse Rate [Right] Respiratory Rate 17 16 TAR Vitals Timing Blood Pressure 113/65 112/64 114/63 Blood Pressure [Right Arm] Blood Pressure Mean 73 73 76 Blood Pressure Mean [Right Arm] Blood Pressure Source Blood Pressure Position 02 Sat by Pulse Oximetry 97 97 99 01/10/22 03:00 01/10/22 03:30 01/10/22 04:00 Temperature Temperature Source Pulse Rate 97 H 97 H 94 H Pulse Rate [Right] Respiratory Rate TAR Vitals Timing Blood Pressure 118/65 107/66 L 113/63 Blood Pressure [Right Arm] Blood Pressure Mean 79 77 73 Blood Pressure Mean [Right Arm] Blood Pressure Source Blood Pressure Position 02 Sat by Pulse Oximetry 99 99 99 01/10/22 04:45 01/10/22 05:00 01/10/22 05:05 Temperature 98.4 F 98.5 F 98.8 F Temperature Source Oral Oral Oral Pulse Rate 94 H 95 H 91 H Pulse Rate [Right] Respiratory Rate 18 18 18 TAR Vitals Timing Pre-Blood Vitals Start Vitals 5 Minute Blood Pressure 115/74 105/76 L 115/66 Blood Pressure [Right Arm] Blood Pressure Mean 87 85 82 Blood Pressure Mean [Right Arm] Blood Pressure Source Blood Pressure Position 02 Sat by Pulse Oximetry 98 98 99 01/10/22 05:10 01/10/22 05:15 01/10/22 05:30 Temperature 98.6 F 98.4 F 98.4 F Temperature Source Oral Oral Pulse Rate 98 H 90 91 H Pulse Rate [Right] Respiratory Rate 18 18 18 TAR Vitals Timing 10 Minute 15 Minute 30 Minute Blood Pressure 111/67 110/68 111/64 Blood Pressure [Right Arm] Blood Pressure Mean 81 82 79 Blood Pressure Mean [Right Arm] Blood Pressure Source Blood Pressure Position 02 Sat by Pulse Oximetry 99 100 98 01/10/22 05:45 01/10/22 06:00 01/10/22 06:48 Temperature 98.7 F 98.6 F 98.6 F Temperature Source Oral Oral Oral Pulse Rate 94 H 93 H 92 H Pulse Rate [Right] Respiratory Rate 18 18 18 TAR Vitals Timing 45 Minute 60 Minute Completion Vitals Blood Pressure 109/66 L 109/68 L 112/68 Blood Pressure [Right Arm] Blood Pressure Mean 80 81 82 Blood Pressure Mean [Right Arm] Blood Pressure Source Blood Pressure Posi
--- NOTE | 2022-01-10 01:34 | CT_ITS ---
PROCEDURE INFORMATION: Exam: CT Abdomen And Pelvis Without Contrast Exam date and time: 01/10/2022 1:56 AM Age: 51 years old Clinical indication: Abdominal pain; Generalized; Prior surgery; Patient HX: Colon cancer, colostomy bag, nephrostomy tube; Additional info: Open sores TECHNIQUE: Imaging protocol: Computed tomography of the abdomen and pelvis without contrast. Radiation optimization: All CT scans at this facility use at least one of these dose optimization techniques: automated exposure control; mA and/or kV adjustment per patient size (includes targeted exams where dose is matched to clinical indication); or iterative reconstruction. COMPARISON: CT ABDOMEN PELVIS W CON 08/04/2019 9:46 AM FINDINGS: Lungs: Scattered nodular opacities are present throughout both lungs, some of which appear branching and tree-in bud like. Heart: Normal heart size. Nonspecific small volume pericardial fluid. Liver: Unremarkable noncontrast appearance. Gallbladder and bile ducts: Cholecystectomy. No biliary dilation. Pancreas: Unremarkable noncontrast appearance. Spleen: Spleen mildly enlarged measuring 13 cm in AP dimension. Adrenal glands: Right adrenal gland is not clearly separable from the right perinephric nodularity, likely also has metastatic implants. Kidneys and ureters: Bilateral ureteral stents. There is moderate right hydronephrosis, with foci of gas in the collecting system. Asymmetric atrophy of the right kidney, new since prior. Extensive ill-defined soft tissue nodularity throughout the right perinephric space suspicious for widespread metastatic disease. Left kidney is decompressed by a percutaneous nephrostomy catheter. Scattered foci of gas in the left renal collecting system. Stomach and bowel: Postsurgical changes. A right upper quadrant ostomy is present. No small bowel dilation or obstruction. Ill-defined appearance of the rectum, with concern for neoplastic infiltration. Appendix: No evidence of appendicitis. Intraperitoneal space: No pneumoperitoneum. Vasculature: Unremarkable. No abdominal aortic aneurysm. Lymph nodes: Ill-defined soft tissue masses near the bilateral pelvic sidewalls, probably conglomerate lymph node metastases. There are mildly enlarged bilateral inguinal nodes, indeterminate. Urinary bladder/reproductive: Bladder is filled with gas and fluid. There is diffuse wall thickening. Complete loss of fat planes/separation between the bladder, rectum, and prostate gland/seminal vesicles. Radiation therapy may have contributed in part to this appearance, but suspect recurrent neoplastic infiltration throughout the pelvic organs. 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 Bones/joints: Patchy osteopenia present. Suspect osseous metastatic disease as well. Interval mild superior endplate compression deformity of L1. Interval biconcave compression deformity of L2, age indeterminate, likely pathologic. Chronic bilateral pars defects of L3. Spondylosis. Prominent posterior disc-osteophyte ridges at T12-L1 and L1-L2 (with chronic likely moderate spinal canal stenosis at T12-L1 and high-grade spinal canal stenosis at L1-L2). Soft tissues: Body wall edema. Abnormal neoplastic tissue arising from the rectum infiltrates into the adjacent posterior pelvic musculature, most conspicuously in the left piriformis. There is ill-defined nodularity throughout left ischiorectal fat, possibly metastatic disease or prominent collateral vessel formation, difficult to distinguish on this noncontrast study. Reportedly, there also some wound sites in the pelvic region, not fully visualized on this exam. IMPRESSION: 1
--- NOTE | 2022-01-10 02:48 | PC.NURSE ---
CALL MADE TO [facility] RE: TRANSFER
--- NOTE | 2022-01-10 02:57 | PC.NURSE ---
Dr. Olivares speaking with Dr. Moore at [facility]
--- NOTE | 2022-01-10 03:03 | PC.NURSE ---
PATIENT ACCEPTED BY DR. ACEVEDO, NO BEDS AVAILABLE AT THIS TIME
[2022-01-10 03:28] LABS: Reflex Lactic Add Lactic Reflex
[2022-01-10 03:45] LABS: Lactic Acid Follow Up (RFLX 1) 1.2 mmol/L (0.7-2.1)
--- NOTE | 2022-01-10 05:12 | PC.NURSE ---
NAEL, Jing, at BS
--- NOTE | 2022-01-10 06:34 | PC.NURSE ---
phone call from [facility] for update on patient, still no available beds
--- NOTE | 2022-01-10 07:10 | PC.NURSE ---
Went in to assess pt after receiving shift report. currently at bedside. Pt was confused. Stating that This area here isn't even part of the hospital. She filled it all with water. I didn't think it would take this long. All the water... all the water . advises that he has been experiencing episodes of confusion since he began not feeling well.
--- NOTE | 2022-01-10 09:09 | PC.NURSE ---
0900 [address]KE [address] A[address]LAIDA AT DR. CASH OFFICE, DR. RAMOS IS OFF TODAY. WILL NOTIFY HIS NURSE.
--- NOTE | 2022-01-10 09:17 | PC.NURSE ---
Transferred to Cecy Meza nurse who states he is out of town today but his partner was there but they have no access to getting a bed any sooner for the pt at [facility].
--- NOTE | 2022-01-10 09:54 | PC.NURSE ---
Service aware and will take care of admission for pt fish.
--- NOTE | 2022-01-10 10:00 | PC.NURSE ---
I called and spoke with Dr. Olivares to confirm admission for pt while we are on the wait list for .Cm. Dr. Olivares advised he would admit the pt and he would take care of the orders. Went in and spoke with who is primary housekeeper child care and updated her and pt on POC. Pt was laying in bed resting, advised pt had been talking nonsense for a couple of minutes but was back to himself at this time. She advised he had been having more frequent periods of confusion lately. Pt able to tell me his name and where he was at this time. Pt and both verbalized understanding of POC. No new needs at this time
--- NOTE | 2022-01-10 10:00 | PC.NURSE ---
Went in to begin platelet infusion and assess pt. Pt A&O X3, but still rambling about things that and I are unable to make sense of. continues to sit at bs and reorient pt.
--- NOTE | 2022-01-10 10:08 | PC.NURSE ---
Spoke to Ting in Care Management regarding patient admission
--- NOTE | 2022-01-10 10:09 | PC.NURSE ---
NAEL Lugo and Dara Feng RN at BS
--- NOTE | 2022-01-10 10:53 | PC.NURSE ---
Called dietary for a lunch tray; regular diet
--- NOTE | 2022-01-10 10:54 | PC.NURSE ---
NAEL Lugo informed me that patient has orders in for NPO diet; we will not give patient tray at this time.
--- NOTE | 2022-01-10 11:16 | PC.NURSE ---
Report called to Judy Hernandes
--- NOTE | 2022-01-10 11:16 | PC.NURSE ---
Addendum entered by Judy Hernandes RN 01/10/22 11:25: Spoke to [place] in ER regarding pt's post H/H, requested for ER staff to draw labs d/t pt remaining in their dept at the time it was due. Original Note: Received report from NAEL Lira. D/t pt's periods of confusion and being behind closed door, Hearing And Speech Assistant has given permission for to stay at bedside despite COVID+ status.
--- NOTE | 2022-01-10 11:27 | PC.NURSE ---
Clarified w/ NAEL Dyer that MARIANNE Oh has approved for pt's to remain at bedside. has to remain inside room and have mask on at all times.
[2022-01-10 12:08] LABS: Hemoglobin 7.6 g/dL (14.1-18.0)
--- NOTE | 2022-01-10 12:08 | PC.NURSE ---
lab called with critical HCT 21.[address] CLIFTON
--- NOTE | 2022-01-10 12:34 | PC.NURSE ---
Pt resting in bed at this time.
--- NOTE | 2022-01-10 12:49 | HMH.HP ---
*Admission Date: 01/10/22 *Chief complaint: sob *History of present illness: this patient presented to the ed with increased weakness and mobility and sob which had been progressive over the last few days - this patient has sig hx of metastatic colon cancer with last radiation about a few weeks ago - pt has been obtaining blood and plt transfusions - pt was admitted for transfusion and treatment for possible sepsis [facility] History I have reviewed the patient's past medical history: Yes Medical History: Reports:: Cancer (colorectal), Diabetes Mellitus Type 2 Denies:: Diabetes Mellitus Type 1, MRSA *Have you ever received a pneumonia vaccine?: Yes *Have you received a flu vaccine this season?: Yes - *Social History Smoking Status: Unknown if ever smoked Alcohol Intake: never *Occupational Status:: employed *Travel in the last 8 weeks: None Family Hx:: Non-contributory Review of Systems - Review of Systems Review of systems:: pertinent systems reviewed and negative unless documented below - Constitutional Reports weakness, Denies fever(s) - Eyes Denies change in vision - ENT Denies sore throat - *Cardiovascular Reports shortness of breath, Denies chest pain - *Respiratory Denies cough, Denies coughing up blood - *Gastrointestinal Reports abdominal pain, Reports nausea, Denies vomiting - *Genitourinary Reports scrotal swelling - *Musculoskeletal Denies joint pain, Denies neck pain - Integumentary/Breasts Denies rash - *Neurologic Reports weakness, Denies localized weakness, Denies seizure-like activity - Psychiatric Denies anxiety Meds Home Medications Medication Instructions Recorded Confirmed Type Cetirizine HCl 10 mg PO HS 01/09/22 01/09/22 History Duloxetine HCl 30 mg PO DAILY 01/09/22 01/09/22 History Hydromorphone HCl [Hydromorphone 8 mg PO Q4HP PRN 01/09/22 01/09/22 History 8mg Tab] Metoclopramide HCl [Metoclopramide 10 mg PO AC 01/09/22 01/10/22 History 10mg Tablet] Pantoprazole Sodium 40 mg PO DAILY 01/09/22 01/09/22 History Lidocaine [Lidocaine 5% ointment 0 gm TP TID 01/10/22 01/10/22 History 35gm tube] Ondansetron [Ondansetron Odt 8mg 8 mg PO TIDP PRN 01/10/22 01/10/22 History Tab] Silver Sulfadiazine [Silvadene 1 applic TP TID 01/10/22 01/10/22 History Cream 50gm] fentaNYL [fentaNYL 100mcg Patch] 100 mcg TD Q72H 01/10/22 01/10/22 History Allergies Allergy/AdvReac Type Severity Reaction Status Date / Time atropine [From Lomotil] Allergy Verified 10/08/20 12:50 diphenoxylate [From Lomotil] Allergy Verified 10/08/20 12:50 sulfamethoxazole Allergy Verified 01/09/22 23:29 [From Bactrim] trimethoprim [From Bactrim] Allergy Verified 01/09/22 23:29 Exam Vital signs and Labs for Last 24 Hours: Temp Pulse Resp BP Pulse Ox 98.5 F 86 16 109/63 L 100 01/10/22 12:35 01/10/22 12:35 01/10/22 12:35 01/10/22 12:35 01/10/22 12:35 Laboratory Results - last 24 hr 01/09/22 23:15: WBC 9.6, RBC 1.99 L*, Hgb 5.8 L*, Hct 16.2 L*, MCV 81.2, MCH 29.2, MCHC 36.0 H, RDW 18.0 H, Plt Count 8 L*, MPV 8.0, Neut % (Auto) 88.2 H, Lymph % (Auto) 7.4 L, [place] % (Auto) 3.3, Eos % (Auto) 0.2, Baso % (Auto) 0.9, Neut # (Auto) 8.5 H, Lymph # (Auto) 0.7, [place] # (Auto) 0.3, Eos # (Auto) 0.0, Baso # (Auto) 0.1, Total Counted 100, Neutrophils % (Manual) 78 H, Band Neutrophils % 13.0 H, Lymphocytes % (Manual) 7 L, Monocytes % (Manual) 2, Platelet Estimate Marked decrease, RBC Morphology Not Reportable, Anisocytosis 2+, Rouleaux 1+, ESR 90 H 01/09/22 23:15: Sodium 127 L, Potassium 3.9, Chloride 93 L, Carbon Dioxide 21 L, Anion Gap 16.9 H, BUN 64 H, Creatinine 1.90 H, Estimated Creat Clear 46, Estimated GFR 38 L, Est GFR ( Amer) 45 L, Glucose 181 H, Calcium 12.6 H*, Total Bilirubin 0.8, AST 56, ALT 51, Alkaline Phosphatase 110, Troponin I 0.06 H, C-Reactive Protein 282.0 H, Total Protein 5.6 L D, Albumin 3.0 L, Globulin 2.6, Albumin/Globulin Ratio 1.2 01/09/22 23:15:
--- NOTE | 2022-01-10 13:01 | HMH.PHAINT ---
MEDICATION RECONCILIATION COMPLETED ON PATIENT USING EXTERNAL FILL HISTORY FROM PHARMACY AND SONA REPORT. -HARRIETT BOLANOSD
--- NOTE | 2022-01-10 13:04 | HMH.PHAVTE ---
[facility] Pharmacy VTE Monitoring - Patient Demographics Admission date: 01/10/22 Report Date: 01/10/22 Time: 13:04 Allergies/Adverse Reactions: Patient Allergies atropine [From Lomotil] Allergy (Verified 10/08/20 12:50) diphenoxylate [From Lomotil] Allergy (Verified 10/08/20 12:50) sulfamethoxazole [From Bactrim] Allergy (Verified 01/09/22 23:29) trimethoprim [From Bactrim] Allergy (Verified 01/09/22 23:29) Height: 1.75 m Weight: 70.307 kg Patient Problems: Current Active Problems UTI (urinary tract infection) (Acute) Severe sepsis with acute organ dysfunction (Acute) Colon carcinoma metastatic to multiple sites (Acute) COVID-19 (Acute) Anemia (Acute) Thrombocytopenia (Acute) LILI (acute kidney injury) (Acute) Hypercalcemia (Acute) - VTE Risk Labs: VTE Related Lab Results Hgb 7.6 g/dL (14.1-18.0) L D 01/10/22 11:41 Hct 21.0 % (42.0-52.0) L 01/10/22 11:41 Plt Count 8 K/mm3 (142-424) L* 01/09/22 23:15 BUN 64 mg/dl (9-20) H 01/09/22 23:15 Creatinine 1.90 mg/dl (0.66-1.25) H 01/09/22 23:15 Estimated Creat Clear 46 mL/min (50-200) 01/09/22 23:15 - Prophylaxis VTE Prophylaxis Ordered?: Yes Types of VTE Prophylaxis: TEDS Knee High Location of Applied Device: Bilateral Lower Extremeties
--- NOTE | 2022-01-10 18:45 | PC.NURSE ---
Pt has been resting since arrival to floor. No adverse signs or symptoms from blood transfusion. Nephrostomy bag has dark red/brown and cloudy urine in bag. Pt has in room. No new complaints. VSS.
[2022-01-10 19:31] LABS: Hematocrit 29.2 % (42.0-52.0)
[2022-01-10 19:38] LABS: Hemoglobin 10.2 g/dL (14.1-18.0)
--- NOTE | 2022-01-11 03:34 | PC.NURSE ---
Pt was administered emergency plactelets per order. Pt received approx. 215ml bag. Start time at 2235 verified with House SupRosario Tapia. Ended at 2250Run by gravity. Pt tolerated well and 0 Reactions noted. Unit [id number] B- Platelets.
[2022-01-11 03:45] VITALS: BP 125/74; PULSE 89; RESP 18; TEMP 36.6; O2SAT 99
[2022-01-11 04:55] VITALS: BMI 22.1
[2022-01-11 06:43] LABS: Basophils # 0.1 K/mm3 (0-0.2); Basophils % 0.8 % (0.1-2.0); Eosinophils # 0.1 K/mm3 (0.0-0.4); Eosinophils % 0.7 % (0.1-12.0); Hematocrit 26.8 % (42.0-52.0); Hemoglobin 9.7 g/dL (14.1-18.0); Lymphocytes # 0.3 K/mm3 (0.7-4.5); Lymphocytes % 4.2 % (10-50); Mean Corpuscular HGB Conc 36.3 g/dL (31.8-35.4); Mean Corpuscular Hemoglobin 30.4 pg (27.0-31.2); Mean Corpuscular Volume 83.6 fl (80-94); Mean Platelet Volume 7.7 fl (7.4-10.4); Monocytes # 0.1 K/mm3 (0.1-1.0); Monocytes % 1.9 % (1.7-9.3); Neutrophils # 6.5 K/mm3 (1.8-7.8); Neutrophils % 92.5 % (37.0-80.0); Platelet Count 62 K/mm3 (142-424); Red Cell Distribution Width 16.1 % (11.5-17.5)
[2022-01-11 06:45] LABS: MANUAL DIFFERENTIAL MANUAL DIFFERENTIAL (MANUAL DIFF)
[2022-01-11 06:50] LABS: Alanine Aminotransferase 49 U/L (12-78); Albumin Level 2.7 g/dl (3.5-5.0); Albumin/Globulin Ratio 1.1 (1.1-1.8); Alkaline Phosphatase 125 U/L (38-126); Aspartate Amino Transferase 62 U/L (17-59); Bilirubin,Total 1.4 mg/dl (0.2-1.3); Blood Urea Nitrogen 48 mg/dl (9-20); Calcium 11.4 mg/dl (8.4-10.2); Carbon Dioxide 23 mmol/L (22.0-30.0); Chloride 99 mmol/L (98-107); Creatinine Clearance Estimated 72 mL/min (50-200); Estimated Glomerular Filt Rate 64 ml/min (>60); GFR (African American) 77 ML/MIN (>60); Globulin 2.5 g/dL (1.3-3.2); Glucose 118 mg/dl (74-100); Magnesium 1.3 mg/dl (1.6-2.3); Sodium 129 mmol/L (136-145); Total Protein,Serum 5.2 g/dl (6.3-8.2)
[2022-01-11 07:11] LABS: Anion Gap 10.2 mEq/L (5-15); Lymphocytes % 6 % (10-50); Monocytes % 4 % (2-9); Neutrophils % 86 % (42-76); Potassium 3.2 mmoL/L (3.5-5.1); Total Cells Counted 100
[2022-01-11 07:12] LABS: Anisocytosis 1+; Platelet Estimate Moderate Decrease
[2022-01-11 07:13] LABS: Hypochromasia 1+; Microcytosis 1+; Ovalocytes 1+
[2022-01-11 08:00] VITALS: BP 125/77; PULSE 91; RESP 15; TEMP 36.6; O2SAT 98
--- NOTE | 2022-01-11 10:35 | HMH.DCSUM ---
General - General Admission date:: 01/10/22 Discharge date: 01/11/22 HPI HPI: this patient presented to the ed with increased weakness and mobility and sob which had been progressive over the last few days - this patient has sig hx of metastatic colon cancer with last radiation about a few weeks ago - pt has been obtaining blood and plt transfusions - pt was admitted for transfusion and treatment for possible sepsis Hospital Course Hospital Course: 51 year old male patient presented to the ed with increased weakness and mobility and sob which had been progressive over the last few days - this patient has sig hx of metastatic colon cancer with last radiation about a few weeks ago - pt has been obtaining blood and plt transfusions - pt was admitted for transfusion UTI (urinary tract infection) 3+ leukocytes, positive nitrate, 3+ protein Has received ceftriaxone IV inpatient and will discharge on levofloxacin Will follow micro biology results Severe sepsis with acute organ dysfunction Patient has received IV fluids, blood pressure has been 120s over 70s and heart rate 80s to 90s. He is tolerating clears with diet without any difficulties Colon carcinoma metastatic to multiple sites Virtual oncology appointment scheduled for 01/13/2022 at 9 AM patient and family aware COVID-19 He denies any shortness of breath, fever/chills/body aches, nausea/vomiting/diarrhea, and has taste/smell. Current oxygenation 98% on room air, will follow in clinic with quick appointment Anemia Hemoglobin/hematocrit 5.8/16.2, patient received 4 units of packed red blood cells presently 10.2/29.2 Thrombocytopenia Platelets were 8, after 4 units packed red blood cells and platelets presently 62 LILI (acute kidney injury) BUN was 64 with creatinine 1.8, after IV fluids BUN 48 and creatinine 1.2. GFR was 38 has now increased to 64. Hypercalcemia Calcium was 12.6 after IV fluids calcium now 11.4 51-year-old male patient resting quietly in bed with eyes open, present in room. He reports he had a good night and is feeling better today. Oxygen saturation 98% on room air. Hemoglobin 10.2 presently with no visible bleeding. Discussed discharge home with patient and , both are in agreement. He has a follow-up appointment with his oncologist , oncology office called and visit has been changed from in person to virtual due to COVID. Patient and are aware and are in agreement. PLAN: 1. We will discharge home today 2. Levofloxacin 750 mg daily for 7 days 3. Follow-up with Dr. Rueda, oncologist, visit arranged patient and family aware 4. Follow-up with Dr. Cardenas 1 week Objective Vital signs: Temp Pulse Resp BP Pulse Ox 97.9 F 91 H 15 125/77 98 01/11/22 08:00 01/11/22 08:00 01/11/22 08:00 01/11/22 08:00 01/11/22 08:00 no acute distress, chronically ill appearing - *Routine HEENT Exam Head: Present: normocephalic Eye: Present: EOMI ENT: Present: mucous membranes moist - *Routine Neck Exam Present: trachea midline. Absent: tracheal deviation - *Routine Respiratory Exam Present: CTA bilaterally. Absent: accessory muscle use - *Routine Cardiovascular Exam Present: RRR - *Routine Abdominal Exam Present: soft, normoactive bowel sounds, ostomy. Absent: tenderness - *Routine Extremities Exam Present: edema, full ROM, pulses intact. Absent: cyanosis, clubbing - *Routine Skin Exam Present: intact, dry. Absent: cyanosis, erythema - *Routine Neurological Exam Present: alert, oriented X3. Absent: motor deficit - Routine Psychiatric Exam Present: normal affect, normal thought process. Absent: visual hallucinations Results Labs on day of discharge: Labs from last 24 hours 01/11/22 01/11/22 01/10/22 06:22 06:22 19:10 WBC 7.0 D RBC 3.20 L D Hgb 9.7 L 10.2 L D Hct 26.8 L 29.2 L MCV 83.6 MCH 30.4 MCHC 36.3 H RDW 16.1 Plt Count 62 L D MPV
[2022-01-11 12:00] VITALS: BP 137/78; PULSE 143; RESP 16; TEMP 37.2; O2SAT 96
--- NOTE | 2022-01-11 12:56 | PC.NURSE ---
Discharge instructions give to pt by DIANNE Alvarado w/ supervision of NAEL Salas. All questions answered, pt verbalized understanding. Port deaccessed. Pt is getting dressed and will notify staff when ready to leave the floor.
[2022-01-11 13:11] LABS: Microscopic, Urine URINE MICROSCOPIC (MICROSCOPIC)
[2022-01-11 13:30] LABS: Appearance,Urine TURBID (Clear); Blood, Urine 3+ (Negative); Color,Urine BROWN (Yellow); Glucose,Urine (UA) Negative (Negative); Ketones,Urine Negative (Negative); Leukocyte Esterase,Urine 2+ (Negative); Nitrate,Urine POSITIVE (Negative); Protein,Urine 3+ (Negative)
[2022-01-11 13:59] LABS: Bilirubin,Urine Negative (Negative)
[2022-01-11 14:02] LABS: Squamous Epithelial Cell,Urine Occasional #/hpf (0-5)
[2022-01-11 14:03] LABS: Bacteria,Urine 2+ /lpf
== END 2022-01-11 13:04 | disposition home or self-care (01) | DRG 698 ==
LOC: ER 23:06 → 2ND 01-10 11:28
PROVIDERS: Family Medicine; Admitting Provider Emergency Medicine; Emergency Provider Emergency Medicine; PCP Internal Medicine; Visit Provider Emergency Medicine
DX: T83.512A Infection and inflammatory reaction due to nephrostomy catheter, initial encounter (principal); A41.9 Sepsis, unspecified organism; U07.1 COVID-19; R65.20 Severe sepsis without septic shock; C79.9 Secondary malignant neoplasm of unspecified site; N17.9 Acute kidney failure, unspecified; N39.0 Urinary tract infection, site not specified; C19 Malignant neoplasm of rectosigmoid junction; C18.9 Malignant neoplasm of colon, unspecified; N32.1 Vesicointestinal fistula; D69.6 Thrombocytopenia, unspecified; E83.52 Hypercalcemia; Z93.3 Colostomy status; Y83.3 Surgical operation with formation of external stoma as the cause of abnormal reaction of the patient, or of later complication, without mention of misadventure at the time of the procedure
CPT/HCPCS: 36415; 36430; 71045; 74176; 80053; 81001; 83605; 83735; 84484; 85007; 85014; 85018; 85025; 85651; 86140; 86850; 87040; 87086; 87088; 87186; 93005; 96375; 99285; C9803; J0692; J2405; P9016; P9034; U0003; U0005

== ENCOUNTER 2022-01-17 13:31 | Inpatient (IN) | payer BC, SELFPAY ==
[2022-01-17] VITALS (32 sets, daily range): BP systolic 73–116; BP diastolic 36–68; PULSE 98–128; RESP 15–30; TEMP 36.6–37.5; O2SAT 75–100; BMI 22.8; BMI 23.2
--- NOTE | 2022-01-17 14:03 | XR_ITS ---
FINAL REPORT CLINICAL HISTORY: soa, history of cancer FINDINGS: A portable view of the chest was obtained. Comparison is made to a prior exam dated January 09, 2022. There is no change in a right Port-A-Cath. Cardiac and mediastinal silhouettes are within normal limits. The lungs are clear. There is no pleural effusion or pneumothorax. IMPRESSION: No acute process on this portable exam. Reviewed, Interpreted and Dictated by Marcy Peres MD Transcribed by Moustapha Hou Authenticated by Marcy Peres MD on 01/17/2022 04:18:53 PM [facility]
--- NOTE | 2022-01-17 14:18 | CT_ITS ---
FINAL REPORT TECHNIQUE: Thin section axial images were obtained from the lung bases to the pubic symphysis without IV contrast. CLINICAL HISTORY: Abd pain, generalized, history of cancer, anemia, has a colostomy and other drains COMPARISON: 01/10/2022 FINDINGS: Again seen are bilateral, somewhat irregular opacities which are not significantly changed. The unenhanced liver is without focal lesion. The gallbladder is absent. The spleen, left adrenal gland, and pancreas are without acute abnormality. The appearance of the right adrenal gland and right perinephric soft tissue nodules is unchanged and presumably neoplastic. There are bilateral ureteral stents. There is air within the right renal collecting system which has increased. This could be ascending from air within the urinary bladder. An infectious process is not excluded. Air in the left renal collecting system is stable. There is stable hydronephrosis. No small bowel obstruction is seen. There is a large amount of stool throughout the colon. A right ostomy is unchanged. There is worsening body wall anasarca. Small retroperitoneal lymph nodes are stable. Abnormal appearance to the urinary bladder is unchanged. Abnormal appearance to the rectum and presacral soft tissues appear similar to the prior exam. Evaluation is somewhat limited without contrast. There is likely pelvic sidewall lymphadenopathy. Bilateral inguinal adenopathy is unchanged. No acute osseous abnormality is seen. IMPRESSION: Worsening air within the right kidney. Infectious process is not excluded. Worsening anasarca. Otherwise, extensive findings as detailed above not significantly changed from 01/10/2022 Reviewed, Interpreted and Dictated by Marcy Peres MD Transcribed by Sindhu Meraz Authenticated by Marcy Peres MD on 01/17/2022 05:01:33 PM [facility]
[2022-01-17 15:04] LABS: Basophils # 0.1 K/mm3 (0-0.2); Basophils % 1.3 % (0.1-2.0); Eosinophils % 0.3 % (0.1-12.0); Hemoglobin 7.2 g/dL (14.1-18.0); Lymphocytes # 0.2 K/mm3 (0.7-4.5); Lymphocytes % 6.1 % (10-50); Mean Corpuscular HGB Conc 35.9 g/dL (31.8-35.4); Mean Corpuscular Hemoglobin 29.2 pg (27.0-31.2); Mean Corpuscular Volume 81.4 fl (80-94); Mean Platelet Volume 7.3 fl (7.4-10.4); Monocytes # 0.1 K/mm3 (0.1-1.0); Monocytes % 1.3 % (1.7-9.3); Neutrophils # 3.3 K/mm3 (1.8-7.8); Red Blood Count 2.48 M/mm3 (4.60-6.20); Red Cell Distribution Width 16.4 % (11.5-17.5); White Blood Count 3.6 K/mm3 (4.8-10.8)
[2022-01-17 15:10] LABS: Chloride 93 mmol/L (98-107); Sodium 123 mmol/L (136-145)
[2022-01-17 15:13] LABS: Alanine Aminotransferase 39 U/L (12-78); Albumin Level 2.5 g/dl (3.5-5.0); Albumin/Globulin Ratio 0.9 (1.1-1.8); Alkaline Phosphatase 168 U/L (38-126); Aspartate Amino Transferase 45 U/L (17-59); Bilirubin,Total 1.7 mg/dl (0.2-1.3); Carbon Dioxide 17 mmol/L (22.0-30.0); Creatinine Clearance Estimated 40 mL/min (50-200); Estimated Glomerular Filt Rate 32 ml/min (>60); GFR (African American) 38 ML/MIN (>60); Globulin 2.9 g/dL (1.3-3.2); Glucose 140 mg/dl (74-100); Total Protein,Serum 5.4 g/dl (6.3-8.2)
[2022-01-17 15:15] LABS: Hematocrit 20.2 % (42.0-52.0); Platelet Count 4 K/mm3 (142-424)
[2022-01-17 15:17] LABS: MANUAL DIFFERENTIAL MANUAL DIFFERENTIAL (MANUAL DIFF)
[2022-01-17 15:25] LABS: Troponin I 0.05 ng/ml (0.00-0.034)
[2022-01-17 15:38] LABS: Blood Urea Nitrogen 82 mg/dl (9-20); Calcium 12.1 mg/dl (8.4-10.2)
--- NOTE | 2022-01-17 15:39 | PC.NURSE ---
Luz Elena from called from lab for criticals on patient, BUN 82 and calcium 12.1, repeated and verified.
--- NOTE | 2022-01-17 15:50 | ECG_ITS ---
APPROVED REPORT Exam: Resting ECG HR:123 bpm ECG Measurements Heart Rate 123 AXES TX 134 P 72 QRSd 86 QRS 68 QT 337 T 77 QTc 410 Conclusion SINUS TACHYCARDIA NONSPECIFIC T-WAVE ABNORMALITY ABNORMAL RHYTHM ECG UNCONFIRMED REPORT Electronically signed by : Hossein Acevedo MD 01/17/2022 17:47:01
[2022-01-17 16:03] LABS: Lipase 66 U/L (23-300)
[2022-01-17 16:18] LABS: Anisocytosis 1+; Eosinophils % 1 % (0-3); Lymphocytes % 9 % (10-50); Monocytes % 1 % (2-9); Neutrophils % 85 % (42-76); Total Cells Counted 100
[2022-01-17 16:19] LABS: Platelet Estimate Marked Decrease
--- NOTE | 2022-01-17 16:29 | PC.NURSE ---
lab at bedside drawing BC
--- NOTE | 2022-01-17 17:40 | PC.NURSE ---
Called [facility] for icu bed, Pt placed on waiting list, Dr Ramirez to call back.
--- NOTE | 2022-01-17 18:12 | PC.NURSE ---
[facility] accepted pt but advised they did not have any beds at this time. speaking with family
--- NOTE | 2022-01-17 18:24 | HMH.EDGENADL ---
ED Disposition Clinical Impression: Shock, Abscess of right kidney Disposition: Xfer Short-Term Hosp Condition on Discharge: Critical - Critical Care Critical Care Time: Yes Attestation: On 01/17/22, the high probability of a clinically significant, sudden or life threatening deterioration of the following system(s) required my full and direct attention, intervention and personal management. The time I documented below is in addition to time spent performing reported procedures but includes the following listed in this critical care notation. Total Critical Care Time: 75 Vital system(s) involved:: Circulatory Failure, Metabolic Failure, Shock (Septic) My critical care processes included: Assessment & monitoring of V/S, Initial and Re-exams, Data Review/Interpretation, Coordinating Care, Medication Orders and management, Documentation Medical Decision Making - Medical Records Medical records reviewed: Yes: I reviewed the patient's medical records. - See Inquiry Pt receiving controlled substance: No Vital Signs: 01/17/22 13:32 01/17/22 14:00 01/17/22 15:47 Temperature 98.7 F 99.5 F Temperature Source Oral Oral Pulse Rate 128 H 125 H Pulse Rate [Left Radial] 123 H Respiratory Rate 18 20 30 H TAR Vitals Timing Blood Pressure 88/58 L 79/55 L Blood Pressure [Right Arm] 102/52 L Blood Pressure Mean 65 Blood Pressure Mean [Right Arm] 68 Blood Pressure Source [Right Arm] Automatic Cuff Blood Pressure Position [Right Arm] Sitting 02 Sat by Pulse Oximetry 98 99 97 Oxygen Delivery Method Room Air Room Air 01/17/22 16:00 01/17/22 16:49 01/17/22 17:00 Temperature Temperature Source Pulse Rate 122 H 118 H 109 H Pulse Rate [Left Radial] Respiratory Rate 20 18 16 TAR Vitals Timing Blood Pressure 91/62 L 73/44 L 95/59 L Blood Pressure [Right Arm] Blood Pressure Mean 68 53 67 Blood Pressure Mean [Right Arm] Blood Pressure Source [Right Arm] Blood Pressure Position [Right Arm] 02 Sat by Pulse Oximetry 98 92 L 99 Oxygen Delivery Method 01/17/22 17:31 01/17/22 18:00 01/17/22 18:30 Temperature Temperature Source Pulse Rate 108 H 108 H 106 H Pulse Rate [Left Radial] Respiratory Rate 16 16 TAR Vitals Timing Blood Pressure 78/36 L 95/51 L 86/48 L Blood Pressure [Right Arm] Blood Pressure Mean 59 64 55 Blood Pressure Mean [Right Arm] Blood Pressure Source [Right Arm] Blood Pressure Position [Right Arm] 02 Sat by Pulse Oximetry 99 75 L Oxygen Delivery Method 01/17/22 19:04 01/17/22 19:12 01/17/22 19:15 Temperature 99.0 F 98.6 F 98.9 F Temperature Source Oral Oral Oral Pulse Rate 103 H 104 H 109 H Pulse Rate [Left Radial] Respiratory Rate 18 18 20 TAR Vitals Timing Pre-Blood Vitals Start Vitals 5 Minute Blood Pressure 99/60 L 99/63 L 105/55 L Blood Pressure [Right Arm] Blood Pressure Mean 73 75 71 Blood Pressure Mean [Right Arm] Blood Pressure Source [Right Arm] Blood Pressure Position [Right Arm] 02 Sat by Pulse Oximetry 100 99 99 Oxygen Delivery Method 01/17/22 19:20 01/17/22 19:25 Temperature 97.9 F 98.8 F Temperature Source Oral Oral Pulse Rate 104 H 105 H Pulse Rate [Left Radial] Respiratory Rate 18 20 TAR Vitals Timing 10 Minute 15 Minute Blood Pressure 101/63 L 97/65 L Blood Pressure [Right Arm] Blood Pressure Mean 75 75 Blood Pressure Mean [Right Arm] Blood Pressure Source [Right Arm] Blood Pressure Position [Right Arm] 02 Sat by Pulse Oximetry 98 99 Oxygen Delivery Method - Lab Data Lab Results 01/17/22 14:48: WBC 3.6 L, RBC 2.48 L, Hgb 7.2 L, Hct 20.2 L*, MCV 81.4, MCH 29.2, MCHC 35.9 H, RDW 16.4, Plt Count 4 L*, MPV 7.3 L, Neut % (Auto) 91.0 H, Lymph % (Auto) 6.1 L, [place] % (Auto) 1.3 L, Eos % (Auto) 0.3, Baso % (Auto) 1.3, Neut # (Auto) 3.3, Lymph # (Auto) 0.2 L, [place] # (Auto) 0.1, Eos # (Auto) 0.0, Baso # (Auto) 0.1, Total Counted 100, Neutrophils % (Manual) 85 H, Band Neutro
--- NOTE | 2022-01-17 18:53 | PC.NURSE ---
Ami obtained blood consent and went to lab to obtain units
[2022-01-17 18:58] LABS: Reflex Lactic Add Lactic Reflex
[2022-01-17 19:21] LABS: Coronavirus 19, PCR Not Detected (NotDetected); Influenza A, PCR Not Detected (NotDetected); Influenza B, PCR Not Detected (NotDetected)
--- NOTE | 2022-01-17 19:30 | PC.NURSE ---
Called report to Radha
--- NOTE | 2022-01-17 20:39 | PC.NURSE ---
pt to floor via sam at 2035.
[2022-01-17 20:44] LABS: Lactic Acid Follow Up (RFLX 1) 1.4 mmol/L (0.7-2.1)
[2022-01-17 20:57] LABS: Troponin I 0.05 ng/ml (0.00-0.034)
[2022-01-18] VITALS (32 sets, daily range): BP systolic 93–126; BP diastolic 53–72; PULSE 85–120; RESP 16–20; TEMP 36.4–38.7; O2SAT 96–100; BMI 23.4
--- NOTE | 2022-01-18 06:06 | PC.NURSE ---
Patient has received 2 units of PRBs and 2 units of platelets this shift, tolerated well. No c/o pain this shift. Patient has not rested well and has had mild confusion t/o shift. at bedside. Nothing further.
[2022-01-18 06:47] LABS: Alanine Aminotransferase 30 U/L (12-78); Albumin Level 2.5 g/dl (3.5-5.0); Albumin/Globulin Ratio 0.9 (1.1-1.8); Alkaline Phosphatase 130 U/L (38-126); Anion Gap 12.6 mEq/L (5-15); Aspartate Amino Transferase 46 U/L (17-59); Bilirubin,Total 1.4 mg/dl (0.2-1.3); Calcium 11.4 mg/dl (8.4-10.2); Carbon Dioxide 19 mmol/L (22.0-30.0); Chloride 98 mmol/L (98-107); Creatinine Clearance Estimated 52 mL/min (50-200); Estimated Glomerular Filt Rate 43 ml/min (>60); GFR (African American) 52 ML/MIN (>60); Globulin 2.7 g/dL (1.3-3.2); Glucose 100 mg/dl (74-100); Magnesium 1.6 mg/dl (1.6-2.3); Potassium 3.6 mmoL/L (3.5-5.1); Sodium 126 mmol/L (136-145); Total Protein,Serum 5.2 g/dl (6.3-8.2)
[2022-01-18 06:49] LABS: Activated Partial Thrombo Time 44.8 seconds (22.8-30.6); INR 1.53 (0.9-1.1); Prothrombin Time 16.8 seconds (10.1-12.5)
[2022-01-18 07:03] LABS: Basophils # 0.1 K/mm3 (0-0.2); Basophils % 1.3 % (0.1-2.0); Eosinophils % 0.2 % (0.1-12.0); Hematocrit 22.8 % (42.0-52.0); Lymphocytes # 0.3 K/mm3 (0.7-4.5); Lymphocytes % 6.8 % (10-50); Mean Corpuscular HGB Conc 34.9 g/dL (31.8-35.4); Mean Corpuscular Hemoglobin 28.6 pg (27.0-31.2); Mean Corpuscular Volume 81.9 fl (80-94); Mean Platelet Volume 9.1 fl (7.4-10.4); Monocytes # 0.1 K/mm3 (0.1-1.0); Monocytes % 3.4 % (1.7-9.3); Neutrophils # 3.6 K/mm3 (1.8-7.8); Neutrophils % 88.3 % (37.0-80.0); Red Blood Count 2.78 M/mm3 (4.60-6.20); Red Cell Distribution Width 16.1 % (11.5-17.5); White Blood Count 4.1 K/mm3 (4.8-10.8)
[2022-01-18 07:05] LABS: MANUAL DIFFERENTIAL MANUAL DIFFERENTIAL (MANUAL DIFF); Platelet Count 31 K/mm3 (142-424)
[2022-01-18 07:08] LABS: Blood Urea Nitrogen 80 mg/dl (9-20)
--- NOTE | 2022-01-18 07:11 | P.CONPHA_ITS ---
[facility] Pharmacy VTE Monitoring - Patient Demographics Admission date: 01/17/22 Report Date: 01/18/22 Time: 07:11 Allergies/Adverse Reactions: Patient Allergies atropine [From Lomotil] Allergy (Verified 10/08/20 12:50) diphenoxylate [From Lomotil] Allergy (Verified 10/08/20 12:50) sulfamethoxazole [From Bactrim] Allergy (Verified 01/09/22 23:29) trimethoprim [From Bactrim] Allergy (Verified 01/09/22 23:29) Height: 1.75 m Weight: 71.906 kg Patient Problems: Current Active Problems Shock (Acute) Abscess of right kidney (Acute) - VTE Risk Labs: VTE Related Lab Results Hgb 8.0 g/dL (14.1-18.0) L D 01/18/22 06:26 Hct 22.8 % (42.0-52.0) L 01/18/22 06:26 Plt Count 31 K/mm3 (142-424) L* D 01/18/22 06:26 PT 16.8 seconds (10.1-12.5) H 01/18/22 06:26 INR 1.53 (0.9-1.1) H 01/18/22 06:26 APTT 44.8 seconds (22.8-30.6) H 01/18/22 06:26 BUN 80 mg/dl (9-20) H 01/18/22 06:26 Creatinine 1.70 mg/dl (0.66-1.25) H D 01/18/22 06:26 Estimated Creat Clear 52 mL/min (50-200) 01/18/22 06:26 VTE Score: 3 VTE Risk Level: Low Risk - Prophylaxis VTE Prophylaxis Ordered?: Yes Types of VTE Prophylaxis: TEDS Knee High Location of Applied Device: Bilateral Lower Extremeties
--- NOTE | 2022-01-18 07:26 | HMH.HP ---
*Admission Date: 01/17/22 *Chief complaint: weakness, bleeding, anemia *History of present illness: Mr. Dias is a pleasant 51-year-old male who presented to the ED today for further evaluation of altered mental status, rectal bleeding, abdominal pain, and weakness. He has significant medical history for rectal cancer, failure to thrive, chronic blood loss anemia, status post colostomy tube placement. He has had worsening p.o. intake and weight loss over the past several months. On arrival he appears incredibly unwell, tachycardic, hypotensive with initial mean arterial pressure in the 50s. He is followed by physicians at [facility] for oncology, chronic nephrostomy tube, colostomy care, and anemia. Similar presentation within the past month with severe anemia requiring 4 units of red blood cells and platelets. On initial work-up CBC, CMP, blood cultures, lactate, CT abdomen obtained. Initial work-up showed evidence of severe acute kidney injury, persistently having poor urine output from his left-sided nephrostomy tube. CT scan of abdomen showing concern for air in his right kidney. This is suspicious for abscess. Noted to have findings consistent with severe thrombocytopenia, anemia, and severe sepsis. Initiated on broad-spectrum IV antibiotics, IV fluid resuscitation per sepsis protocol. Transfused with 2 units red blood cells and 2 units of platelets overnight. Seeing some improvement clinically by rounds this morning. On rounds he remains afebrile. States he is less dizzy, still quite fatigued. No significant appetite. Denies any nausea or vomiting. Colostomy with adequate stool output. While in the ER, transfer initiated to [place] for more definitive care with his subspecialist team. At this time he is awaiting transfer and bed availability. [facility] History I have reviewed the patient's past medical history: Yes Medical History: Reports:: Cancer Denies:: Diabetes Mellitus Type 1, Diabetes Mellitus Type 2, MRSA *Have you ever received a pneumonia vaccine?: No *Have you received a flu vaccine this season?: No Other Medical History: Reports: Anemia Other Surgeries: Yes: Colonoscopy, Colostomy - *Social History Smoking Status: Never smoker Alcohol Intake: never *Occupational Status:: disabled Household Members: spouse *Travel in the last 8 weeks: None Family Hx:: Cancer, Diabetes Review of Systems - Review of Systems Review of systems:: pertinent systems reviewed and negative unless documented below (14 point review of systems performed, pertinent positives and negatives as per HPI) Meds Home Medications Medication Instructions Recorded Confirmed Type Cetirizine HCl 10 mg PO HS 01/09/22 01/17/22 History Duloxetine HCl 30 mg PO DAILY 01/09/22 01/17/22 History Hydromorphone HCl [Hydromorphone 4 mg PO Q4HP PRN 01/09/22 01/18/22 History 8mg Tab] Metoclopramide HCl [Metoclopramide 10 mg PO AC 01/09/22 01/17/22 History 10mg Tablet] Pantoprazole Sodium 40 mg PO DAILY 01/09/22 01/17/22 History Lidocaine [Lidocaine 5% ointment 0 gm TP QIDP PRN 01/10/22 01/18/22 History 35gm tube] fentaNYL [fentaNYL 100mcg Patch] 75 mcg TD Q72H 01/10/22 01/17/22 History Ondansetron [Zofran 4mg ODT] 4 mg PO BIDP PRN #30 tab 01/11/22 01/17/22 Rx Allergies Allergy/AdvReac Type Severity Reaction Status Date / Time atropine [From Lomotil] Allergy Verified 10/08/20 12:50 diphenoxylate [From Lomotil] Allergy Verified 10/08/20 12:50 sulfamethoxazole Allergy Verified 01/09/22 23:29 [From Bactrim] trimethoprim [From Bactrim] Allergy Verified 01/09/22 23:29 Exam Vital signs and Labs for Last 24 Hours: Temp Pulse Resp BP Pulse Ox 98.2 F 97 H 18 115/64 99 01/18/22 06:24 01/18/22 06:24 01/18/22 06:24 01/18/22 06:24 01/18/22 06:24 Laboratory Results - last 24 hr 01/17/22 14:48: WBC 3.6 L, RBC 2.48 L, Hgb 7.2 L, Hct 20.2 L*, MCV 81.4, MCH 29.2, MCHC 35.9 H, RDW 16.4, Plt Cou
--- NOTE | 2022-01-18 07:40 | HMH.PHAINT ---
HOME MEDICATION LIST VERIFIED USING LIST FROM OUTPATIENT PHARMACY
--- NOTE | 2022-01-18 08:15 | HMH.PHACONS ---
- Pharmacy Consult Date: 01/18/22 Time: 08:15 Referring provider: DR. REYES Reason for Consult:: VANCOMCYIN DOSING Allergies and ADEs:: Allergies Allergy/AdvReac Type Severity Reaction Status Date / Time atropine [From Lomotil] Allergy Verified 10/08/20 12:50 diphenoxylate [From Lomotil] Allergy Verified 10/08/20 12:50 sulfamethoxazole Allergy Verified 01/09/22 23:29 [From Bactrim] trimethoprim [From Bactrim] Allergy Verified 01/09/22 23:29 Home Medications:: Home Medications Medication Instructions Recorded Confirmed Type Cetirizine HCl 10 mg PO HS 01/09/22 01/17/22 History Duloxetine HCl 30 mg PO DAILY 01/09/22 01/17/22 History Hydromorphone HCl [Hydromorphone 4 mg PO Q4HP PRN 01/09/22 01/18/22 History 8mg Tab] Metoclopramide HCl [Metoclopramide 10 mg PO AC 01/09/22 01/17/22 History 10mg Tablet] Pantoprazole Sodium 40 mg PO DAILY 01/09/22 01/17/22 History Lidocaine [Lidocaine 5% ointment 0 gm TP QIDP PRN 01/10/22 01/18/22 History 35gm tube] fentaNYL [fentaNYL 100mcg Patch] 75 mcg TD Q72H 01/10/22 01/17/22 History Ondansetron [Zofran 4mg ODT] 4 mg PO BIDP PRN #30 tab 01/11/22 01/17/22 Rx Height: 1.75 m Weight: 71.906 kg Laboratory Results:: Laboratory Results - last 24 hr 01/17/22 14:48: WBC 3.6 L, RBC 2.48 L, Hgb 7.2 L, Hct 20.2 L*, MCV 81.4, MCH 29.2, MCHC 35.9 H, RDW 16.4, Plt Count 4 L*, MPV 7.3 L, Neut % (Auto) 91.0 H, Lymph % (Auto) 6.1 L, Labette % (Auto) 1.3 L, Eos % (Auto) 0.3, Baso % (Auto) 1.3, Neut # (Auto) 3.3, Lymph # (Auto) 0.2 L, Labette # (Auto) 0.1, Eos # (Auto) 0.0, Baso # (Auto) 0.1, Total Counted 100, Neutrophils % (Manual) 85 H, Band Neutrophils % 4.0, Lymphocytes % (Manual) 9 L, Monocytes % (Manual) 1 L, Eosinophils % (Manual) 1, Platelet Estimate Marked decrease, Anisocytosis 1+ 01/17/22 14:48: Sodium 123 L, Potassium 4.0, Chloride 93 L, Carbon Dioxide 17 L, Anion Gap 17.0 H, BUN 82 H, Creatinine 2.20 H, Estimated Creat Clear 40, Estimated GFR 32 L, Est GFR ( Amer) 38 L, Glucose 140 H, Calcium 12.1 H, Total Bilirubin 1.7 H, AST 45, ALT 39, Alkaline Phosphatase 168 H, Troponin I 0.05 H, Total Protein 5.4 L, Albumin 2.5 L, Globulin 2.9, Albumin/Globulin Ratio 0.9 L 01/17/22 14:48: Lactate 3.0 H 01/17/22 14:48: Lipase 66 01/17/22 14:48: Blood Type A Positive, Antibody Screen Negative, Crossmatch ([facility]) See Detail 01/17/22 17:16: SARS-CoV-2 (PCR) Not detected, Influenza A Untype (PCR) Not detected, Influenza Type B (PCR) Not detected 01/17/22 20:05: Troponin I 0.05 H 01/17/22 20:05: Lactate 1.4 01/18/22 06:26: WBC 4.1 L, RBC 2.78 L, Hgb 8.0 L D, Hct 22.8 L, MCV 81.9, MCH 28.6, MCHC 34.9, RDW 16.1, Plt Count 31 L* D, MPV 9.1, Neut % (Auto) 88.3 H, Lymph % (Auto) 6.8 L, Labette % (Auto) 3.4, Eos % (Auto) 0.2, Baso % (Auto) 1.3, Neut # (Auto) 3.6, Lymph # (Auto) 0.3 L, Labette # (Auto) 0.1, Eos # (Auto) 0.0, Baso # (Auto) 0.1 01/18/22 06:26: PT 16.8 H, INR 1.53 H, APTT 44.8 H 01/18/22 06:26: Sodium 126 L, Potassium 3.6, Chloride 98, Carbon Dioxide 19 L, Anion Gap 12.6, BUN 80 H, Creatinine 1.70 H D, Estimated Creat Clear 52, Estimated GFR 43 L, Est GFR ( Amer) 52 L D, Glucose 100 D, Calcium 11.4 H, Magnesium 1.6, Total Bilirubin 1.4 H, AST 46, ALT 30, Alkaline Phosphatase 130 H, Total Protein 5.2 L, Albumin 2.5 L, Globulin 2.7, Albumin/Globulin Ratio 0.9 L Medical History: Reports:: Cancer Denies:: Diabetes Mellitus Type 1, Diabetes Mellitus Type 2, MRSA Assessment and Plan - Assessment and plan all Dx Assessment and Plan for all problems:: Age: 51 yo Serum creatinine: 1.7 mg/dL Height: 68.9 Inches Weight (kg): 72 Assessment: IBW (kg): 70.47 Dosing wt(kg): 72 Estimated Creatinine clearance (ml/min): 51.2 CRCL method: Cockcroft and Gault using ibw(default). Drug selected: Vancomycin Loading dose (mg): 0 Vd (liters): 57.6 (factor used: 0.8 L/kg) Naif (hr-1): 0.047 Half life (hrs): 14.75 Recommended dose: 1
[2022-01-18 08:42] LABS: Lymphocytes % 4 % (10-50); Monocytes % 2 % (2-9); Neutrophils % 89 % (42-76); Total Cells Counted 100
[2022-01-18 08:43] LABS: Anisocytosis 1+; Ovalocytes 1+; Platelet Estimate Marked Decrease; Poikilocytosis 1+
--- NOTE | 2022-01-18 09:15 | PC.NURSE ---
Spoke w/ Dai @ [facility], @ 1876, still no bed available at this time.
--- NOTE | 2022-01-18 10:15 | DIET.NUTRFU ---
RD consulted secondary to poor po intake, dehydration prior to admit. Patient has had CA, nephrostomy tube and ostomy are in place. Patient has noticed a decline in meal intake over the last 3 weeks. According to hospital stays he has lost 24# since September, his cheeks are sunken in and collar bones protruding. He triggers for malnutrition. Will notify youth care professional. reports he had been up to 3meals/day 3weeks ago and now is offered meals 3 times but only consumes total of 1 snack/day. Reports he has no appetite, states that he has a medication/liquid at home for appetite but has not tried it. He does not wish to have PEG placed. Reviewed appetite stimulates like remeron and marinol. He is on cymbalta for depression already. Will consult provider for determine if remeron would still be appropriate. This RD did review that the remeron can take 30 days to see results. reports he used to be a diabetic and A1c on 06/21/21 was 7.3%, they would like to continue on diabetic diet. Denies any chewing or swallowing issues, does normally fix softer foods to make it easier. He does drink glucerna at home but only when replacing a meal, couple per week. Suggested he drink it in-between meals so he then would consume 6 small meals/day and increase his caloric intake. Denies any N/V and no change in ostomy care. He does take reglan 3xday, 15minutes before meals to help with mobility, nursing aware. Updated orders ad completed assessment.
--- NOTE | 2022-01-18 15:55 | PC.NURSE ---
Spoke w/ Dai @ [facility] @ 3700 and still no bed available at this time.
--- NOTE | 2022-01-18 18:41 | PC.NURSE ---
No acute changes. VSS. Still awaiting bed at [facility]. remains at bedside.
[2022-01-19] VITALS: BP 91/55; PULSE 100; PULSE 105; RESP 14; TEMP 37.1; O2SAT 97
[2022-01-19 04:00] VITALS: BP 97/59; PULSE 97; RESP 18; TEMP 36.3; O2SAT 98
--- NOTE | 2022-01-19 07:21 | PC.NURSE ---
Pt slept all night. stated that Pt had not slept in 2 days and requested that we not wake him unless necessary. PT was awoken celsa am for meds. Pt was slightly confused but appeared to regain his strength after a few min. still awaing for a bed with [facility].
[2022-01-19 07:45] VITALS: BP 96/53; PULSE 99; RESP 17; TEMP 36.4; O2SAT 100
[2022-01-19 08:00] VITALS: PULSE 100
--- NOTE | 2022-01-19 08:43 | P.PN_ITS ---
Internal Medicine - PN: Subj *Date: 01/19/22 *Time: 08:43 Interval history: Overnight patient has become a little bit more somnolent and weak. His attributes this to the increased dose of Durogesic that he was put on yesterday because of ongoing malignancy related pain. She states this is happened before, and Dr. Rueda-their oncologist-has told him that at this breakpoint of narcotic doses they would need to decide between pain relief versus clarity. She like to go back down to the 75 to see if he becomes a little bit more clear neurologically. Labs are pending for this morning. Exam Vital signs and Labs for Last 24 Hours: Temp Pulse Resp BP Pulse Ox 97.6 F 99 H 17 96/53 L 100 01/19/22 07:45 01/19/22 07:45 01/19/22 07:45 01/19/22 07:45 01/19/22 07:45 Laboratory Results - last 24 hr 01/17/22 14:48: Blood Type A Positive, Antibody Screen Negative, Crossmatch ([facility]) See Detail 01/18/22 06:26: Total Counted 100, Neutrophils % (Manual) 89 H, Band Neutrophils % 5.0, Lymphocytes % (Manual) 4 L, Monocytes % (Manual) 2, Platelet Estimate Marked decrease, Poikilocytosis 1+, Anisocytosis 1+, Ovalocytes 1+ I & O for Last 24 hours: Intake & Output 01/16/22 01/17/22 01/18/22 01/19/22 11:59 11:59 11:59 11:59 Intake Total 1254.65 / 1254.65 600 / 600 Output Total 825 / 825 950 / 950 Balance 429.65 / 429.65 -350 / -350 Weight 158 lb 8.198 oz Narrative: Patient is somnolent. Does respond to request to take a deep breath but otherwise does not engage in conversation or communication. Is cachectic, appears terminally ill. Skin turgor is poor. He has an ashen complexion. No scleral icterus. Lungs have barrel chesting chest appearance very diminished air entry. Heart rate regular. Abdomen is scaphoid. Extremities are cachectic with poor skin turgor. Assessment and Plan (1) Severe sepsis with acute organ dysfunction Status: Acute Category: Medical Code(s): A41.9 - Sepsis, unspecified organism; R65.20 - Severe sepsis without septic shock (2) LILI (acute kidney injury) Status: Acute Category: Medical Code(s): N17.9 - Acute kidney failure, unspecified (3) Abscess of right kidney Status: Acute Category: Medical Code(s): N15.1 - Renal and perinephric abscess (4) Chronic blood loss anemia Status: Chronic Category: Medical Code(s): D50.0 - Iron deficiency anemia secondary to blood loss (chronic) (5) Unintentional weight loss Status: Chronic Category: Medical Code(s): R63.4 - Abnormal weight loss (6) Hypercalcemia Status: Acute Category: Medical Code(s): E83.52 - Hypercalcemia (7) Thrombocytopenia Status: Acute Category: Medical Code(s): D69.6 - Thrombocytopenia, unspecified - Assessment and plan all Dx Assessment and Plan for all problems:: Chronically and terminally ill. Continue comfort care measures but treat disease states as previously planned. Follow labs this morning. Back down Duragesic to 75. If bed becomes available at [facility] he will be transferred there for oncology evaluation.
[2022-01-19 08:46] LABS: Basophils # 0.1 K/mm3 (0-0.2); Basophils % 1.4 % (0.1-2.0); Eosinophils % 0.8 % (0.1-12.0); Hematocrit 22.1 % (42.0-52.0); Hemoglobin 7.7 g/dL (14.1-18.0); Lymphocytes # 0.3 K/mm3 (0.7-4.5); Lymphocytes % 9.3 % (10-50); Mean Corpuscular HGB Conc 34.8 g/dL (31.8-35.4); Mean Corpuscular Hemoglobin 29.3 pg (27.0-31.2); Mean Corpuscular Volume 84.2 fl (80-94); Mean Platelet Volume 11.3 fl (7.4-10.4); Monocytes # 0.1 K/mm3 (0.1-1.0); Monocytes % 2.1 % (1.7-9.3); Neutrophils # 2.8 K/mm3 (1.8-7.8); Neutrophils % 86.4 % (37.0-80.0); Red Blood Count 2.63 M/mm3 (4.60-6.20); Red Cell Distribution Width 16.3 % (11.5-17.5); White Blood Count 3.3 K/mm3 (4.8-10.8)
[2022-01-19 08:48] LABS: Platelet Count 13 K/mm3 (142-424)
[2022-01-19 08:50] LABS: MANUAL DIFFERENTIAL MANUAL DIFFERENTIAL (MANUAL DIFF)
[2022-01-19 08:53] LABS: Anion Gap 12.5 mEq/L (5-15); Calcium 11.4 mg/dl (8.4-10.2); Carbon Dioxide 20 mmol/L (22.0-30.0); Chloride 100 mmol/L (98-107); Creatinine Clearance Estimated 56 mL/min (50-200); Estimated Glomerular Filt Rate 46 ml/min (>60); GFR (African American) 55 ML/MIN (>60); Glucose 97 mg/dl (74-100); Potassium 3.5 mmoL/L (3.5-5.1); Sodium 129 mmol/L (136-145)
[2022-01-19 08:55] LABS: INR 1.52 (0.9-1.1); Prothrombin Time 16.7 seconds (10.1-12.5)
[2022-01-19 08:58] LABS: Blood Urea Nitrogen 81 mg/dl (9-20)
[2022-01-19 09:09] LABS: Anisocytosis 1+; Lymphocytes % 11 % (10-50); Monocytes % 1 % (2-9); Neutrophils % 82 % (42-76); Total Cells Counted 100
[2022-01-19 09:10] LABS: Acanthocytes 1+; Ovalocytes 1+; Platelet Estimate Marked Decrease
[2022-01-19 09:11] LABS: Hypochromasia 1+; Poikilocytosis 1+
--- NOTE | 2022-01-19 09:28 | HMH.DCSUM ---
General - General Admission date:: 01/17/22 Discharge date: 01/19/22 HPI HPI: Mr. Dias is a pleasant 51-year-old male who presented to the ED today for further evaluation of altered mental status, rectal bleeding, abdominal pain, and weakness. He has significant medical history for rectal cancer, failure to thrive, chronic blood loss anemia, status post colostomy tube placement. He has had worsening p.o. intake and weight loss over the past several months. On arrival he appears incredibly unwell, tachycardic, hypotensive with initial mean arterial pressure in the 50s. He is followed by physicians at [facility] for oncology, chronic nephrostomy tube, colostomy care, and anemia. Similar presentation within the past month with severe anemia requiring 4 units of red blood cells and platelets. On initial work-up CBC, CMP, blood cultures, lactate, CT abdomen obtained. Initial work-up showed evidence of severe acute kidney injury, persistently having poor urine output from his left-sided nephrostomy tube. CT scan of abdomen showing concern for air in his right kidney. This is suspicious for abscess. Noted to have findings consistent with severe thrombocytopenia, anemia, and severe sepsis. Initiated on broad-spectrum IV antibiotics, IV fluid resuscitation per sepsis protocol. Transfused with 2 units red blood cells and 2 units of platelets overnight. Seeing some improvement clinically by rounds this morning. On rounds he remains afebrile. States he is less dizzy, still quite fatigued. No significant appetite. Denies any nausea or vomiting. Colostomy with adequate stool output. While in the ER, transfer initiated to [facility] for more definitive care with his subspecialist team. At this time he is awaiting transfer and bed availability. Hospital Course Hospital Course: Patient was admitted, found to be profoundly anemic and thrombocytopenic. This was addressed with transfusions of red cells and platelets respectively and he had a modest improvement. He was in quite a bit of pain from his malignancy and Duragesic was increased to 100 mcg. He was treated with broad-spectrum antibiotics because of the possibility of sepsis and possible renal pelvic/kidney abscess with air demonstrated on CT scan. Oncology at [facility] was consulted and they accepted the patient in transfer but given bed space availability he was kept at [facility] until a bed became available this morning. Plan will be to transfer to [facility] for further evaluation. He will need to continue his IV antibiotics. I had ordered an ultrasound today to try to get a better look at the kidney to establish whether or not there might be an abscess there but that will need to be done at [facility]. We have already backed down the patient's Duragesic to 75 mcg because of increased somnolence today and discussion with . Please see my progress note from earlier this morning. Objective Vital signs: Temp Pulse Resp BP Pulse Ox 97.6 F 99 H 17 96/53 L 100 01/19/22 07:45 01/19/22 07:45 01/19/22 07:45 01/19/22 07:45 01/19/22 07:45 mild distress, cachectic, chronically ill appearing - *Routine HEENT Exam Head: Present: normocephalic Eye: Present: EOMI, PERRL ENT: Present: mucous membranes moist - *Routine Neck Exam Present: supple - *Routine Respiratory Exam Present: accessory muscle use, CTA bilaterally - *Routine Cardiovascular Exam Present: RRR - *Routine Abdominal Exam Present: soft, normoactive bowel sounds. Absent: tenderness Comments: Scaphoid, cachectic - *Routine Extremities Exam Absent: cyanosis, clubbing, edema Comments: Extremities are thin, muscle wasting noted. Poor movement of extremities given somnolence. - *Routine Skin Exam Present: warm. Absent: rash - Detailed Eye Exam Eyelids: Bilateral normal inspection Results Labs on day of discharge: Kellen
--- NOTE | 2022-01-19 10:50 | PC.NURSE ---
Addendum entered by Jose Bai RN 01/19/22 10:56: This RN also notified Dr. Acevedo of critical BUN and platelets and he ordered a 6 pack of platelets. Pt was accepted to [facility] and Dr. Acevedo stated to go on and send pt w/out receiving platelets first if they weren't ready and administered prior to d/c, that was ok to go on and send him.Lab notified to cancel order for platelets. Original Note: Pt transferred via ems to [facility], Dr. Ramirez, [facility], called report to Joseph. was going to follow ambulance.
== END 2022-01-19 10:40 | disposition short-term general hospital (02) | DRG 871 ==
LOC: ER 19:08 → 2ND 19:42
PROVIDERS: Internal Medicine Adolescent Medicine; Admitting Provider Internal Medicine Adolescent Medicine; Emergency Provider Student in an Organized Health Care Education/Training Program; PCP Internal Medicine; Visit Provider Internal Medicine Adolescent Medicine
DX: A41.9 Sepsis, unspecified organism (principal); N15.1 Renal and perinephric abscess; R65.21 Severe sepsis with septic shock; E43 Unspecified severe protein-calorie malnutrition; C20 Malignant neoplasm of rectum; N17.9 Acute kidney failure, unspecified; Z20.822 Contact with and (suspected) exposure to COVID-19; Z93.6 Other artificial openings of urinary tract status; D69.6 Thrombocytopenia, unspecified; E83.52 Hypercalcemia; D50.0 Iron deficiency anemia secondary to blood loss (chronic); G89.29 Other chronic pain; E86.0 Dehydration; Z68.23 Body mass index [BMI] 23.0-23.9, adult; Z93.3 Colostomy status; N18.9 Chronic kidney disease, unspecified
CPT/HCPCS: 71045; 74176; 80048; 80053; 83605; 83690; 83735; 84484; 85007; 85025; 85610; 85730; 86850; 87040; 87075; 87186; 93005; 99291; 99292; C9803; J0696; P9016; P9017; P9034; U0003; U0005